=== PATIENT | female | born 1975 | race Caucasian/White ===

== ENCOUNTER → 2019-09-15 11:50 | Outpatient (CLI) | payer OTHER, SELFPAY ==
--- NOTE | 2019-09-15 | DI.MG.S_ITS ---
BILATERAL DIGITAL SCREENING MAMMOGRAM 3D/2D WITH CAD: 09/15/2019 CLINICAL: Routine screening. Comparison is made to exam dated: 09/22/2017 [facility]. The tissue of both breasts is heterogeneously dense. This may lower the sensitivity of mammography. Current study was also evaluated with a Computer Aided Detection (CAD) system. No significant masses, calcifications, or other findings are seen in either breast. There has been no significant interval change. IMPRESSION: NEGATIVE There is no mammographic evidence of malignancy. A 1 year screening mammogram is recommended. This exam was interpreted at Station ID: [id number]. NOTE: For mammograms, a report in lay terms will be sent to the patient. Approximately 15% of breast malignancies will not be visualized mammographically. In the management of a palpable breast mass, a negative mammogram must not discourage biopsy of a clinically suspicious lesion. Electronically Signed By: Robby palomino/adeline:09/15/2019 15:50:49 letter sent: Normal Exam ACR BI-RADS Category 1: Negative 3341F
== END ==
PROVIDERS: Family Provider Family Medicine; PCP Family Medicine; Visit Provider Family Medicine
DX: Z12.31 Encounter for screening mammogram for malignant neoplasm of breast (principal)
CPT/HCPCS: 77063; 77067

== ENCOUNTER → 2020-09-29 09:10 | Outpatient (CLI) | payer OTHER, MEDICAID, SELFPAY ==
--- NOTE | 2020-09-29 | DI.MG.S_ITS ---
BILATERAL DIGITAL SCREENING MAMMOGRAM 3D/2D WITH CAD: 09/29/2020 CLINICAL: Routine screening. Comparison is made to exams dated: 09/15/2019 mammogram and 09/22/2017 mammogram - [facility]. The tissue of both breasts is heterogeneously dense. This may lower the sensitivity of mammography. Current study was also evaluated with a Computer Aided Detection (CAD) system. There is an oval equal density focal asymmetry with an obscured and circumscribed margin in the right breast at 12 o'clock posterior depth. There is an oval equal density mass with an obscured and circumscribed margin and grouped fine punctate calcifications in the left breast central to the nipple middle depth. No other significant masses or calcifications are seen in either breast. IMPRESSION: INCOMPLETE: NEEDS ADDITIONAL IMAGING EVALUATION The oval equal density focal asymmetry in the right breast at 12 o'clock posterior depth is indeterminate. Mediolateral and spot compression views as well as additional views with possible ultrasound are recommended. The oval equal density mass in the left breast central to the nipple middle depth is indeterminate. Mediolateral and spot magnification views as well as additional views with possible ultrasound are recommended. This exam was interpreted at Station ID: [id number]. NOTE: For mammograms, a report in lay terms will be sent to the patient. Approximately 15% of breast malignancies will not be visualized mammographically. In the management of a palpable breast mass, a negative mammogram must not discourage biopsy of a clinically suspicious lesion. Electronically Signed By: Robby palomino/adeline:10/01/2020 09:13:03 letter sent: Additional Imaging Needed ACR BI-RADS Category 0: Incomplete 3340F
== END ==
PROVIDERS: Family Provider Family Medicine; PCP Family Medicine; Referring Provider Family Medicine; Visit Provider Family Medicine
DX: Z12.31 Encounter for screening mammogram for malignant neoplasm of breast (principal)
CPT/HCPCS: 77063; 77067

== ENCOUNTER → 2021-02-27 08:32 | Outpatient (CLI) | payer OTHER, MEDICAID, SELFPAY ==
--- NOTE | 2021-02-27 | DI.US.S_ITS ---
ULTRASOUND OF LEFT BREAST: 02/27/2021 CLINICAL: Patient returns today to evaluate a focal asymmetry in the left breast. Comparison is made to exams dated: 02/27/2021 mammogram, 09/29/2020 mammogram, 09/15/2019 mammogram, and 09/22/2017 mammogram - [facility]. Doppler ultrasound of the left breast was performed. Bueno scale images of the real-time examination were reviewed. There is a 1 cm x 1 cm x 0.9 cm irregular mass with an angular margin in the left breast at 5 o'clock posterior depth. This irregular mass is hypoechoic with posterior acoustic shadowing. There are related calcifications. IMPRESSION: SUSPICIOUS OF MALIGNANCY The 1 cm x 1 cm x 0.9 cm irregular mass in the left breast is at a high suspicion for malignancy. An ultrasound guided biopsy is recommended. These findings and recommendation were discussed with the patient by Dr Reid. This exam was interpreted at Station ID: [id number]. Electronically Signed By: Gee Guerra acr/:02/27/2021 12:54:58 letter sent: Biopsy Required Ultrasound BI-RADS: 4c High suspicion of malignancy
--- NOTE | 2021-02-27 | DI.MG.S_ITS ---
BILATERAL DIGITAL DIAGNOSTIC MAMMOGRAM 3D/2D WITH ADDITIONAL VIEWS: 02/27/2021 CLINICAL: Additional evaluation requested from prior study. Comparison is made to exams dated: 09/29/2020 mammogram, 09/15/2019 mammogram, and 09/22/2017 mammogram - [facility]. The tissue of both breasts is heterogeneously dense. This may lower the sensitivity of mammography. There is a mass in the right breast seen on the craniocaudal view only. There also is an oval equal density focal asymmetry with an obscured and circumscribed margin in the right breast at 12 o'clock middle depth. This is not seen in additional views. There is an oval equal density mass with an obscured and circumscribed margin and grouped fine punctate calcifications in the left breast central to the nipple middle depth. This is seen in additional views. No other significant masses or calcifications are seen in either breast. IMPRESSION: INCOMPLETE: NEEDS ADDITIONAL IMAGING EVALUATION The mass in the right breast seen on the craniocaudal view only needs additional evaluation. The oval equal density focal asymmetry in the right breast at 12 o'clock middle depth is indeterminate. An ultrasound is recommended. The oval equal density mass in the left breast central to the nipple middle depth is indeterminate. An ultrasound is recommended. US will be performed and dictated separately. This exam was interpreted at Station ID: [id number]. NOTE: For mammograms, a report in lay terms will be sent to the patient. Approximately 15% of breast malignancies will not be visualized mammographically. In the management of a palpable breast mass, a negative mammogram must not discourage biopsy of a clinically suspicious lesion. Electronically Signed By: Gee Guerra acr/:02/27/2021 09:21:27 letter sent: Need Ultrasound ACR BI-RADS Category 0: Incomplete 3340F
--- NOTE | 2021-02-27 | DI.US.S_ITS ---
PROCEDURE: US BREAST RT LIMITED COMPARISON: None. INDICATIONS: BILATERAL ADDITIONAL VIEWS FINDINGS: IMPRESSION: Dictated by: Gee Guerra M.D. on 02/27/2021 at 12:48 Approved by: Gee Guerra M.D. on 02/27/2021 at 12:51
--- NOTE | 2021-02-27 10:40 | DI.US.S_ITS ---
At the request of: COLLEEN MAHAN Procedure: US breast RT limited ULTRASOUND OF RIGHT BREAST: 02/27/2021 CLINICAL: Patient returns today to evaluate a focal asymmetry in the right breast. Comparison is made to exams dated: 02/27/2021 mammogram, 09/29/2020 mammogram, 09/15/2019 mammogram, and 09/22/2017 mammogram - [facility]. Color flow and continuous wave Doppler ultrasound of the right breast were performed. There is a benign 0.7 cm x 0.4 cm x 0.6 cm oval cyst in the right breast at 12 o'clock posterior depth 4 cm from the nipple. There also is a benign 0.4 cm x 0.3 cm x 0.4 cm round cyst in the right breast at 12 o'clock posterior depth 4 cm from the nipple. IMPRESSION: BENIGN There is no sonographic evidence of malignancy. The 0.7 cm x 0.4 cm x 0.6 cm oval cyst in the right breast at 12 o'clock posterior depth is consistent with a simple cyst and is benign. The 0.4 cm x 0.3 cm x 0.4 cm round cyst in the right breast at 12 o'clock posterior depth is consistent with a simple cyst and is benign. This exam was interpreted at Station ID: [id number]. Electronically Signed By: Gee Guerra acr/:02/27/2021 12:51:34 letter sent: Normal Exam Ultrasound BI-RADS: 2 Benign
== END ==
PROVIDERS: Family Provider Family Medicine; PCP Family Medicine; Referring Provider Family Medicine; Visit Provider Family Medicine
DX: R92.8 Other abnormal and inconclusive findings on diagnostic imaging of breast (principal); N63.23 Unspecified lump in the left breast, lower outer quadrant; N60.01 Solitary cyst of right breast
CPT/HCPCS: 76642; 77066; G0279

== ENCOUNTER → 2021-03-14 12:52 | Outpatient (CLI) | payer OTHER, MEDICAID, SELFPAY ==
--- NOTE | 2021-03-14 | PATH_ITS ---
[facility] Accession Number: [id number] . 01 Material submitted: . breast - LEFT BREAST 4:30 4 CMFN . 01 Diagnosis: A. Left Breast, 4:30 o'clock, 4 cm from the Nipple, Biopsy: Invasive (ductal) carcinoma, grade 2 of 3 (Campo combined histologic grade, total score 7/9), with the following features: 1. Nuclear pleomorphism: Intermediate. (2/3) 2. Mitotic rate: Intermediate. (2/3) 3. Tubular differentiation: Little or none. (3/3) 4. Size of invasive carcinoma: Present on multiple cores, single largest dimension of at least 7 mm on this sample. 5. Ductal carcinoma in situ: Absent. 6. Calcifications: Absent. 7. Lymphatic invasion: Absent in this specimen. 8. Prognostic markers: - Estrogen receptor: Positive (99%, Intermediate). - Progesterone receptor: Positive (5%, Intermediate). - HER2 status: Equivocal for protein overexpression (2+) by immunohistochemistry; FISH studies for gene amplification are pending and the results will be reported in an adddendum. [facility] 03/18/2021 1316 Local . 01 Electronically signed: . Carlyn Alva MD, Pathologist NPI- [id number] . 01 Gross description: . Received in formalin, labeled L breast mass 4:30, are seven pieces of meneses adipose tissue ranging in size from 1.6 x 0.3 x 0.3 cm to 0.6 x 0.3 x 0.3 cm. Clotted hemorrhagic material is also observed measuring 2.5 x 2.1 x 0.4 cm in aggregate. All seven pieces of tissue are entirely submitted in cassette A1. The aggregate amounts of hemorrhagic material are entirely submitted in cassette A2. Collection date and time are listed as 03/14/21 at 13:53 p.m., for a total fixation time after processing of approximately 26 hours. ([id number]) /FRR 03/15/2021 0325 Local . 01 Microscopic: . Predictive marker immunohistochemical studies are performed on block A1 with the invasive carcinoma showing the following results: . Estrogen receptor (SP1): Positive (99% tumor cells staining, intermediate intensity). Progesterone receptor (1E2): Positive (5% tumor cells staining, intermediate intensity). Her2 (4B5): Equivocal for protein overexpression by immunohistochemistry (2+); FISH studies for gene amplification are pending and the results will be reported in an adddendum. . Internal controls for ER and [place] are positive. Cold ischemic time is <5 minutes. The scoring criteria for breast biomarkers by immunohistochemistry is based on the ASCO/CAP guidelines (Jeannette AC et al, J Clin Oncol: 2017Jun 08;36(20):9951-2820 and Shon ME et al, Arch Pathol Lab Med: 2009;134(6):907-22). Deparaffinized sections of formalin fixed tissue (along with appropriate positive controls) are incubated with the above antibody(s). Using the automated [place] stainer, tissue is incubated with the designated antibody which is then localized by a non-biotin, dual polymer detection system. The external controls are reviewed for appropriate reactivity and found to be adequate. Results on the target cell population are indicated above. These tests have not been validated on decalcified tissue. This test was developed and its performance characteristics determined by [employer]. It has not been cleared or approved by the U.S. Food and Drug Administration. The FDA has determined that such clearance or approval is not necessary. This test is used for clinical purposes. It should not be regarded as investigational or for research. . 01 Pathologist provided ICD-10: C50.912 . 01 CPT . 629943, 680425, 329287, 658068 Performed at: 01 [facility] [address] [place] [address] [address] [facility], [place], [place] [id number] MD Robby Marshall MD Phone: [phone]
--- NOTE | 2021-03-14 12:58 | DI.MG.S_ITS ---
UNILATERAL LEFT DIGITAL DIAGNOSTIC MAMMOGRAM POST-EXCISIONAL BIOPSY: 03/14/2021 CLINICAL: Left breast mass. Comparison is made to exams dated: 02/27/2021 mammogram, 09/29/2020 mammogram, and 09/15/2019 mammogram - [facility]. The tissue of left breast is heterogeneously dense. This may lower the sensitivity of mammography. There is a mass in the left breast at 4 o'clock middle depth, biopsied earlier same day. The Vision marker was placed in the mass and has not fully expanded as a result. IMPRESSION: POST PROCEDURE MAMMOGRAM FOR MARKER PLACEMENT The mass in the left breast was biopsied same day under US guidance. The Vision marker is within the mass and thus did not fully expand. This exam was interpreted at Station ID: [id number]. NOTE: For mammograms, a report in lay terms will be sent to the patient. Approximately 15% of breast malignancies will not be visualized mammographically. In the management of a palpable breast mass, a negative mammogram must not discourage biopsy of a clinically suspicious lesion. Electronically Signed By: Carroll Reid M.D. [facility]/:03/15/2021 09:08:44 ACR BI-RADS Category Post-procedure mammogram for marker placement
--- NOTE | 2021-03-14 12:58 | DI.US.S_ITS ---
ULTRASOUND GUIDED BIOPSY LEFT BREAST USING VACUUM DEVICE WITH MARKING DEVICE INSERTED AND POST MAMMOGRAPHIC AND ULTRASOUND IMAGIN03/14/2021 CLINICAL: Left breast mass. PATIENT CONSENT: Risks (minor bleeding, infection, vasovagal reaction and repeat procedure), benefits and alternatives were explained to the patient and written informed consent was obtained. Correlation is made to exams dated: 03/14/2021 mammogram, 02/27/2021 ultrasound, 02/27/2021 mammogram, 09/29/2020 mammogram, 09/15/2019 mammogram, and 09/22/2017 mammogram - [facility]. An ultrasound guided biopsy using real-time ultrasound was performed for the concerning 1 cm x 1.1 cm x 1 cm circumscribed round solid mass located in the left breast at 4 o'clock middle depth. This was described on the previous mammography and ultrasound reports. The skin was prepped in the usual manner. Local anesthetic was administered to the access site. A skin fabiana was made in the breast. The abnormality was approached from the lateral aspect. A 13 gauge biopsy needle was placed adjacent to the abnormality under ultrasound guidance. Once the needle was documented to be in the correct location, four specimens were obtained using the Mammotome biopsy system. The patient received additional local anesthetic during the procedure. A Vision marker clip was inserted into the biopsy cavity. A skin closure strip and a sterile dressing were applied to the access site. Post procedure mammographic and ultrasound imaging demonstrates the location device at the targeted area and partial removal of the abnormality. The specimens were sent to the laboratory for pathological analysis. IMPRESSION: ULTRASOUND GUIDED BIOPSY MALIGNANT Ultrasound guided biopsy of the 1 cm x 1.1 cm x 1 cm solid mass in the left breast at 4 o'clock middle depth was successful. Pathology indicates malignant invasive ductal carcinoma. Pathology results are concordant with imaging findings. A surgical/oncologic consultation is recommended. This exam was interpreted at Station ID: [id number]. Carroll brower,harry/:03/19/2021 09:31:30
== END ==
PROVIDERS: Family Provider Family Medicine; PCP Family Medicine; Referring Provider Family Medicine; Visit Provider Family Medicine
DX: C50.512 Malignant neoplasm of lower-outer quadrant of left female breast (principal); Z17.0 Estrogen receptor positive status [ER+]
CPT/HCPCS: 19083; 77065

== ENCOUNTER → 2021-04-15 10:42 | Outpatient (CLI) | payer OTHER, MEDICAID, SELFPAY ==
--- NOTE | 2021-04-15 10:43 | DI.MRI.S_ITS ---
BREAST MRI OF BOTH BREASTS- WITH CAD: 04/15/2021 CLINICAL: Left breast cancer. Comparison is made to exams dated: 03/14/2021 mammogram, 03/14/2021 ultrasound biopsy, 02/27/2021 ultrasound, and 02/27/2021 mammogram - [facility]. Interpretation of this MRI was correlated with available mammograms and ultrasounds. Informed consent was obtained from the patient. 20 cc of ProHance (Gadoteridol) nonionic contrast was injected. Axial T1, T2, sagittal T1, and pre and post contrast T1 images were obtained with a dedicated breast coil. Post processing was performed including computer aided calculations of any tumor volumes and dimensions. There is moderate a background parenchymal enhancement. Right breast: No suspicious mass or definite abnormal enhancement to suggest malignancy within the right breast. Left breast: Centered at the 4 o'clock o'clock position of the lateral left breast middle 3rd depth, there is an oval mass measuring up to 1.3 x 1.1 x 1.1 cm. This demonstrates an internal linear focus of magnetic susceptibility corresponding to the biopsy clip. Kinetic enhancement curves demonstrate internal regions of rapid initial enhancement with washout in the mass. The findings correspond to patient's biopsy-proven invasive ductal carcinoma. Elsewhere, within the inferior left breast at approximately the 5 to 6 o'clock position, middle to posterior 3rd in depth, there is a small oval enhancing mass measuring approximately 0.8 x 0.7 x 0.6 cm. Kinetic enhancement curves demonstrate predominantly moderate initial enhancement with plateau. Elsewhere, no other definite suspicious mass or abnormal enhancement identified within the left breast. Miscellaneous: No axillary or internal mammary lymphadenopathy by size criteria. IMPRESSION: KNOWN BIOPSY PROVEN MALIGNANCY 1. Left breast mass centered at the 4 o'clock position demonstrated corresponding to patient's biopsy-proven invasive ductal carcinoma. 2. Additional small enhancing mass at the 5-6 o'clock position of the left breast is nonspecific. Recommend further evaluation with a second-look ultrasound and ultrasound-guided biopsy if indicated. 3. No evidence of malignancy in the right breast. This exam was interpreted at Station ID: [id number]. Electronically Signed By: Robby Ga M.D. ddp/:04/15/2021 13:53:23 ACR BI-RADS Category 6: Known biopsy proven malignancy 3346F
== END ==
PROVIDERS: PCP Family Medicine; Referring Provider Family Medicine; Visit Provider Surgery
DX: C50.512 Malignant neoplasm of lower-outer quadrant of left female breast (principal); N63.23 Unspecified lump in the left breast, lower outer quadrant
CPT/HCPCS: 77049

== ENCOUNTER → 2021-04-18 12:49 | Outpatient (CLI) | payer OTHER, MEDICAID, SELFPAY ==
--- NOTE | 2021-04-18 12:50 | DI.US.S_ITS ---
LIMITED ULTRASOUND OF LEFT BREAST: 04/18/2021 CLINICAL: Patient returns today to evaluate a focal asymmetry in the left breast seen on MRI. Comparison is made to exams dated: 04/15/2021 breast MRI, 03/14/2021 ultrasound biopsy, 03/14/2021 mammogram, 02/27/2021 ultrasound, 02/27/2021 ultrasound, and 09/29/2020 mammogram - [facility]. Color flow and real-time ultrasound of the left breast lower outer quadrant were performed. Bueno scale images of the real-time examination were reviewed. There is a mass in the left breast at 4:30 o'clock middle depth 4 cm from the nipple. This correlates with the previous biopsy and the clip is seen. However, no additional mass is seen in the region of the MRI finding at approximately 5-6:00 middle/posterior depth. IMPRESSION: KNOWN BIOPSY PROVEN MALIGNANCY No ultrasound correlate for the MRI finding in the left breast at 5:00-6:00. Suspect that this could be fibroglandular tissue which is also seen on mammogram. Biopsy proven malignancy at 4:30 4 cm from the nipple is again seen. Recommend continued surgical/oncologic consultation. This exam was interpreted at Station ID: [id number]. Electronically Signed By: Kingsley Ness M.D. slc/:04/18/2021 14:55:21 Ultrasound BI-RADS: 6 Known biopsy proven malignancy
== END ==
PROVIDERS: PCP Family Medicine; Referring Provider Surgery; Visit Provider Surgery
DX: R92.8 Other abnormal and inconclusive findings on diagnostic imaging of breast (principal); C50.512 Malignant neoplasm of lower-outer quadrant of left female breast; N64.89 Other specified disorders of breast
CPT/HCPCS: 76642

== ENCOUNTER 2021-05-15 07:34 | Day surgery (SDC) | payer OTHER, MEDICAID, SELFPAY ==
[2021-05-10 12:59] VITALS: BMI 32.3
[2021-05-15] VITALS (7 sets, daily range): BP systolic 148–163; BP diastolic 60–104; PULSE 65–95; RESP 14–16; TEMP 36.3–36.8; O2SAT 97–100; BMI 32.3
--- NOTE | 2021-05-15 | DI.MG.S_ITS ---
SPECIMEN: 05/15/2021 CLINICAL: Left breast cancer. Correlation is made to exams dated: 05/15/2021 localization, 05/15/2021 mammogram, and 02/27/2021 mammogram - [facility]. The specimen contains the loc wire, the biopsy localization Visin marker, and the mass. IMPRESSION: SPECIMEN All desired items are contained in the specimen as noted above. This exam was interpreted at Station ID: [id number]. Carroll Reid M.D. sdh/:05/15/2021 17:27:47
--- NOTE | 2021-05-15 | PATH_ITS ---
[facility] Accession Number: [id number] . 01 Material submitted: . PART A: breast - LEFT BREAST MASS PART B: lymph node - LEFT SENTINEL NODE . 01 Clinical history: . SHORT SUTURE IS ANTERIOR; LONG SUTURE IS SUPERIOR; WIRE IS LATERAL . 02 Diagnosis: A. Left Breast Mass, Excision: Invasive carcinoma of the breast. Please see CAP Cancer Summary data, below. . B. Left [place] Node, Excision: Five lymph nodes negative for metastatic carcinoma by immunohistochemistry studies (0/5). Please see CAP Cancer Summary data, below. . SURGICAL PATHOLOGY CANCER CASE SUMMARY: Invasive carcinoma of the breast. . Procedure: Excision; Lumpectomy and sentinel node biopsy. Specimen laterality: Left. Tumor site: 4:30 o'clock, middle depth, 4 cm from nipple per written ultrasound report. Tumor size: Greatest dimension of largest invasive focus greater than 1 mm: 12 mm (slices 4-6). Histologic type: Invasive carcinoma of no special type (ductal by immunohistochemistry studies). Histologic grade: Glandular (acinar) / tubular differentiation: 3 of 3. Nuclear pleomorphism: 2 of 3. Mitotic rate: 1 of 3. Overall grade: Grade 2. Tumor focality: Single focus of invasive carcinoma. . Ductal carcinoma in situ: Present; favor negative for extensive intraductal component. Although DCIS is present outside the invasive tumor, and extends through 4 slices, it appears to be less than 25% of the invasive tumor area. Size of DCIS: Approximately 16 mm (slices 3-6). Architectural patterns: [place] and solid patterns. Nuclear grade: Grade 3 (high grade). Necrosis: Present, central. Lobular carcinoma in-situ: Not identified. . Tumor excision: Skin: Skin is not present. Skeletal muscle: No skeletal muscle is present. . Margins: Invasive carcinoma margins: Uninvolved by invasive carcinoma. Distance from closest margin: 8 mm from lateral margin. Anterior: Greater than 10 mm. Posterior: Greater than 10 mm. Superior: Greater than 10 mm. Inferior: Greater than 10 mm. Medial: 9 mm. . DCIS margins: Uninvolved by DCIS. Distance from closest margin: 7 mm from the medial margin. Anterior: 8 mm. Posterior: Greater than 10 mm. Superior: Greater than 10 mm. Inferior: Greater than 10 mm. Lateral: Greater than 10 mm. . Regional Lymph nodes: Total number of lymph nodes examined: 5. Number of sentinel lymph nodes examined: 5. Number of lymph nodes with metastasis: 0 Extranodal extension: Not applicable. . Treatment effect in the breast: No known presurgical therapy. Treatment effect in the lymph nodes: Not identified. Lymphovascular invasion: Not identified. Dermal lymphovascular invasion: No skin present. . Pathologic stage classification (pTNM, AJCC 8th Edition): pT1c pN0(sn) . Additional pathologic findings: biopsy marker in slice 5 and biopsy site changes. . Breast biomarker testing; Please microscopic description; HER2 FISH studies pending. . Microcalcifications: Present in non-neoplastic tissue, invasive tumor, and in DCIS. MRV 05/22/2021 1418 Local . 02 Electronically signed: . Arabella Jimenez MD, Pathologist NPI- [id number] . 01 Gross description: . A. Specimen A is received in formalin labeled left breast mass and consists of a single lumpectomy specimen. . Weight: 23 grams. Measurement: 5.5 cm from anterior to posterior x 5.0 cm from superior to inferior x 3.2 cm from medial to lateral. Skin Ellipse: Absent. Wire: Present entering the lateral aspect. Margins: The specimen is oriented with a short suture designated anterior, a long suture designated superior, and a wire designated lateral and is inked as follows: superior blue, inferior green, anterior red, posterior black, medial yellow, and lateral orange. Slice: From anterior to posterior into eleven slices. Lesion: There is a 1.0 x 1.0 x 1.0 cm firm meneses-white lesion within slices 4-6. Biopsy Site: There is a silver metallic balloon-shaped biopsy marker within slice 5 in the center of the mass. Distance to Margins: 0.8 cm from the lateral margin, 1.0 cm from the medial margin, 2.0 cm from the superior and inferior margins, 1.2 cm from the anterior margin, and greater than 2 cm from the posterior margin. Other: The remaining cut surfaces are composed of approximately 75% meneses-yellow lobulated adipose tissue and 25% meneses-white fibrocytic tissue. Automotive [employer] Clerk sections are submitted. . A1 - Anterior margin, perpendicularly sectioned. A2 - Slice 2. A3 - Automotive Parts Clerk slice 3, anterior to mass. A4-A6 - Slice 4, mass, trisected. A7-A9 - Slice 5, mass, trisected. A10 - Slice 6, mass in relation to medial and lateral margins. A11 - Slice 7, posterior to mass. A12 - Slice 8, telephone service representative fibrocytic tissue. A13 - Slice 10. A14-A16 - Slice 11, posterior margin, perpendicularly sectioned. . Formalin fixation time: Approximately 36 hours. . B. Specimen B is received in formalin labeled left sentinel node and consists of a 4.0 x 3.5 x 2.0 cm meneses-yellow fragment of adipose tissue with a suture designated sentinel node. Sectioning reveals a 2.2 x 1.0 x 0.8 cm meneses-pink lymph node within the area of the suture. Also, identified are three additional candidate lymph nodes ranging from 0.2 to 1.0 cm. The specimen is entirely submitted. . B1 - Bisected sentinel node. B2 - Additional lymph nodes. B3 - Remaining adipose tissue. ([id number]) /[facility] 05/22/2021 1348 Local . 02 Microscopic: . Immunostains are performed to better evaluate the cells of interest. The control stains show appropriate reactivity. . RESULTS: Block A: E-cadherin: Strongly positive, consistent with ductal differentiation. . Blocks B2, B2 and B3: MICHELLE: Negative. . The absence of MICHELLE immunostaining mitigates against the presence of metastatic carcinoma. . . CAP BREAST BIOMARKER REPORTING TEMPLATE: . Estrogen Receptor (ER) Status: Positive, approximately 80% of tumor nuclei. Average intensity of staining: Intermediate. Primary antibody: SP1 Progesterone Receptor (PgR) Status: Positive, approximately 5% of tumor nuclei. Average intensity of staining: Intermediate. Primary antibody: 1E2 HER2 (by immunohistochemistry): Equivocal at 2+. Primary antibody: 4B5 HER2 (ERBB2) (by in situ hybridization): Pending; results will be reported as an addendum. . Cold Ischemia and Fixation Times: Meets requirements in the latest version of the ASCO/CAP guidelines. Testing performed on Block Number: A10 . TECHNICAL NOTE: The scoring criteria for breast biomarkers by immunohistochemistry is based on the current ASCO/CAP guidelines (Shon et al, Arch Pathol Lab Med 2010: 134(6): 907-922 / Jeannette Calvo, Arch Pathol Lab Med 2014: 138(2):241-256). Deparaffinized sections of formalin fixed tissue (along with appropriate positive controls) are incubated with the above antibody(s). Using the automated [employer] stainer, tissue is incubated with the designated antibody* which is then localized by a non-biotin, dual polymer detection system. The external controls are reviewed for appropriate reactivity and found to be adequate. Results on the target cell population are indicated above. These tests have not been validated on decalcified tissue. . * This test was developed and its performance characteristics determined by [facility]. It has not been cleared or approved by the U.S. Food and Drug Administration. The FDA has determined that such clearance or approval is not necessary. This test is used for clinical purposes. It should not be regarded as investigational or for research. . 02 Pathologist provided ICD-10: C50.912 . 02 CPT . 808389, 169570, 869624, 265388, 780919, I06140, [id number] Performed at: 01 [facility] [address] [place] [address] [id number] MD Robby Marshall MD Phone: [phone] Performed at: 02 [facility] [address] [place] [address] [id number] MD Jazmyn Acosta MD Phone: [phone]
--- NOTE | 2021-05-15 | DI.MG.S_ITS ---
UNILATERAL LEFT DIGITAL DIAGNOSTIC MAMMOGRAM 3D/2D: 05/15/2021 CLINICAL: Post wire loc. Comparison is made to exams dated: 03/14/2021 mammogram, 02/27/2021 mammogram, and 09/29/2020 mammogram - [facility]. The tissue of left breast is heterogeneously dense. This may lower the sensitivity of mammography. The wire localization targets the biopsy localization site accurately. IMPRESSION: POST PROCEDURE MAMMOGRAM FOR MARKER PLACEMENT The patient was transported for surgical excision of the area of concern, marked by the localization wire. This exam was interpreted at Station ID: [id number]. NOTE: For mammograms, a report in lay terms will be sent to the patient. Approximately 15% of breast malignancies will not be visualized mammographically. In the management of a palpable breast mass, a negative mammogram must not discourage biopsy of a clinically suspicious lesion. Electronically Signed By: Carroll Reid M.D. sdh/:05/15/2021 17:26:12 ACR BI-RADS Category Post-procedure mammogram for marker placement
--- NOTE | 2021-05-15 07:38 | DI.NM.S_ITS ---
PROCEDURE: NM SENTINEL NODE W IMAGING RADIOPHARMACEUTICAL: 0.5-1.0 mCi Millipore filtered Tc-99m sulfur colloid. INDICATIONS: Injection for sentinel node biopsy to be performed in OR COMPARISON: None. TECHNIQUE: The area around the nipple was prepped and draped in a sterile fashion. Tc-99m sulfur colloid was injected intra-dermally in the outer edge of the areola in the left breast. Images were obtained subsequently. A body contour outline was obtained. FINDINGS: There is a single lymph node(s) in the ipsilateral axilla, which is marked on the skin and the images for referring physician. IMPRESSION: Administration of radiotracer into the left breast periareolar region for intra-operative sentinel lymph node localization. Single identified left axillary node visible. Dictated by: Carroll Reid M.D. on 05/15/2021 at 11:34 Approved by: Carroll Reid M.D. on 05/15/2021 at 11:36
--- NOTE | 2021-05-15 07:38 | DI.US.S_ITS ---
ULTRASOUND GUIDED WIRE LOCALIZATION LEFT BREAST WITH POST DIGITAL MAMMOGRAPHIC AND ULTRASOUND IMAGING AND RADIOGRAPHIC SPECIMEN IMAGIN05/15/2021 CLINICAL: Pre op wire localization with ultrasound. Correlation is made to exams dated: 05/15/2021 mammogram, 04/18/2021 ultrasound, 04/15/2021 breast MRI, 03/14/2021 ultrasound biopsy, 03/14/2021 mammogram, and 02/27/2021 [facility]. A wire localization using ultrasound guidance was performed for the concerning circumscribed oval mass located in the left breast at 4 o'clock middle depth. This was described on the previous mammography and ultrasound reports. The skin was prepped in the usual manner. Local anesthetic was administered to the access site. The localization was approached from the lateral aspect. A J-hook wire was inserted into the targeted area under ultrasound guidance. A sterile dressing was applied to the access site. Post placement digital mammographic and ultrasound imaging demonstrates the tip rests in the targeted area. IMPRESSION: WIRE LOCALIZATION Wire localization for the mass in the left breast at 4 o'clock middle depth was successful. The imaged specimen includes the lesion, a biopsy clip, and the distal portion of the localization wire. A surgical excision was performed. This exam was interpreted at Station ID: [id number]. Carroll Reid M.D. [facility]/:05/15/2021 17:22:54
--- NOTE | 2021-05-15 07:47 | SUR.PREOP ---
Patient with SARS-CoV-2 (COVID-!() Qualitative PCR done on aldo via Retrieval Code [id number] Results NOT Detected 05/13
[2021-05-15] MEDS: LACTATED RINGERS 1,000 ML 100 ML IV ×2 (10:49→14:46)
--- NOTE | 2021-05-15 12:17 | PM.PREOP ---
Pre-operative Note COVID-19 COVID-19 status: Negative Result date/Date tested (Pos, Neg/Pending): 05/14/21 Interval Note History & Physical reviewed/Exam performed by Physician: Yes Changes to H&P: No
[2021-05-15] MEDS: CEFAZOLIN 1 GM VIAL 2 GM IV (13:04)
--- NOTE | 2021-05-15 13:19 | SUR.OPER ---
Supine on padded OR bed, head on pillow, arms secured on padded arm boards at <90 degrees abduction, legs uncrossed, safety belt at thigh, tape over blanket over lower legs.
[2021-05-15] MEDS: BUPIVACAINE 0.5% (PF) VIAL 30 ML INJ (13:25)
--- NOTE | 2021-05-15 14:59 | PM.OP.1 ---
Operative Date/Time/Diagnoses Date of procedure: 05/15/21 Time of procedure: 14:59 Pre-op diagnosis: Left breast cancer Post-op diagnosis: same Procedure & Clinicians Procedure: Needle localization with lumpectomy and sentinel node biopsy Same procedure as scheduled: Yes Indications: Biopsy-proven breast cancer in a patient who had an extensive workup. Only 1 lesion was ultimately found and biopsied which proves positive for invasive cancer. She was brought in for lumpectomy and sentinel node biopsy Surgeon: Chino Dodge Click Yes if Unassisted: Yes Anesthesia Type: General Operative Notes Findings: Single hot, normal appearing node. Specimen mammogram revealed the clip in the center of the biopsy tissue and the needle in place. Closure Type: primary Specimen(s): other ([place] node. Breast tissue with wire) Prosthetic devices, grafts, tissues, transplants, or devices: None Estimated Blood Loss (mL): 25 Blood products transfused: none Procedure in detail: The patient is placed supine on the operating room table and underwent general LMA anesthesia. The wire was shortened and she was prepped and draped in the usual fashion. The mass was located just lateral and just inferior to midline based on my macro free and on palpation with deflection of the needle. Local anesthetic was infiltrated and a curvilinear incision made at the edge of the nipple-areolar complex in the left outer lower quadrant. It was carried down into the subcutaneous tissue and breast tissue. Using the needle as a guide the tissue around it was excised down to muscle fascia. This was done principally with cautery. Bleeding was controlled with cautery as well. The specimen was marked while in the patient and then the specimen was detached and removed and sent for specimen mammography. The clip was in the specimen. Meticulous hemostasis was achieved. The patient is small breasted and the amount of tissue removed left a fairly significant defect. It was pretty clear to me that mobilizing surrounding tissue to close this space would result in a rather significant breast deformity. Therefore I chose to leave the cavity open and close the tissues anterior. Clips are placed at the margins of the lumpectomy. The soft tissues were closed in 2 layers with 3-0 Vicryl. The skin was closed running 4-0 Vicryl subcuticular stitch. Attention was turned to the axilla. Using completely different instruments and changing gloves I injected local and made an incision in the lower part of the axilla. Was carried into the axilla proper. Using the Navigator probe I identified a single node that was positive for significant radio activity. I surrounding structures from it and cauterized any vessels going to it. It was removed and counts taken. High single 2nd counts were 371 and the 12nd count was approximately 3700. There was no other tissue in the axilla that raised to count above 10. Meticulous hemostasis was achieved. The axilla was closed with a 3-0 Vicryl. The subcu was closed with 3-0 Vicryl. The skin was closed a running 4-0 Vicryl subcuticular stitch. Steri-Strips were then applied to both wounds. Dressings were applied. The patient was awakened extubated and taken the recovery room good condition. There were no complications. Complications: none Post-operative Condition: stable Disposition: PACU
[2021-05-15] MEDS: OXYCODONE/ACETAMINOPHEN 5/325 TABLET 1 TAB PO (15:40)
--- NOTE | 2021-05-28 12:00 | ONC.SCHED ---
[employer] DX order requisition with supporting documents, including insurance authorization, faxed to [employer] @ [phone].
== END 2021-05-15 16:06 | disposition home or self-care (01) ==
PROVIDERS: PCP Family Medicine; Referring Provider Specialist; Visit Provider Specialist
PROC: (CPT 19301; principal; 2021-05-15 11:45)
DX: C50.512 Malignant neoplasm of lower-outer quadrant of left female breast (principal); Z17.0 Estrogen receptor positive status [ER+]; I10 Essential (primary) hypertension
CPT/HCPCS: 38500; 19125; 38900; 19285; 76098; 77065; 78195; 81025; A9541; C1819; J0690; J1100; J2405; J2704; J3010

== ENCOUNTER 2021-07-16 12:22 | Day surgery (SDC) | payer OTHER, MEDICAID, SELFPAY ==
[2021-07-09 15:17] VITALS: BMI 32.0
[2021-07-16] MEDS: LACTATED RINGERS 1,000 ML 42 ML IV (12:34)
[2021-07-16 12:35] VITALS: BP 177/109; PULSE 88; RESP 20; TEMP 36.6; O2SAT 100; BMI 32.0
--- NOTE | 2021-07-16 14:52 | P.HP_ITS ---
History of Present Illness History of Present Illness Date Patient Seen: 07/16/21 Time Patient Seen: 14:52 Chief complaint: [facility] Narrative: 45F recent diagnosis of left breast cancer status post lumpectomy and sentinel node biopsy. Stage PT1cN, oncology recommending chemotherapy for Oncotype DX score 24 and young age. No distory of prior inwelling venous catheter. Patient History Medical History Easy bruisability HTN (hypertension) Psoriasis Toenail fungus Surgical History History of lumpectomy of left breast (05/15/21) Hx of breast biopsy (03/14/21) Hx of dilation and curettage [place] teeth removed Family & Social History Family History Mother Gallstones Hypertension Skin cancer Father Heart disease Hypertension Grandfather Skin cancer Other Colon cancer Ovarian cancer Social History: household members significant other,children Tobacco & Substance use: Smoking Status Never smoker alcohol intake current alcohol intake frequency a few times a month Substance Use Type does not use Meds Home Medications and Allergies Home Medications Medication Instructions Recorded Confirmed Type Lactobacillus rhamnosus GG 5 5 cell PO DAILY 04/03/21 07/16/21 History billion cell oral powder packet ([employer]) amlodipine 5 mg tablet 5 mg PO DAILY 04/03/21 07/16/21 History cholecalciferol (vitamin D3) 50 50 mcg PO DAILY 04/03/21 07/16/21 History mcg (2,000 unit) capsule terbinafine HCl 250 mg tablet 250 mg PO DAILY 04/03/21 07/16/21 History magnesium 200 mg tablet 200 mg PO 2XW 07/04/21 07/16/21 History dexamethasone 4 mg tablet 8 mg PO BID #12 tab 07/11/21 07/16/21 Rx ondansetron HCl 4 mg tablet 4 mg PO Q6H PRN #60 tab 07/11/21 07/16/21 Rx Allergies Allergy/AdvReac Type Severity Reaction Status Date / Time No Known Drug Allergies Allergy Verified 07/16/21 12:28 Review of Systems Review of Systems ROS: Yes All systems reviewed with the patient and are negative except as otherwise documented Exam Vital Signs (past 8 hours): - 07/16/21 12:35 Temperature 98 F Pulse Rate 88 Respiratory Rate 20 Blood Pressure 177/109 H Pulse Oximetry 100 Oxygen Delivery Method Room Air Narrative Exam Narrative: GENERAL-well developed adult female, no acute distress HEENT-no scleral icterus, hearing intact NECK-no JVD, trachea midline CVS- regular rate, no peripheral edema RESP-unlabored respiratory effort, no audible wheezing GI-soft, nontender nondistended MSK-no cyanosis or clubbing, extremities without deformity SKIN-warm, dry NEURO-alert and oriented, no focal deficits PYSCH-Appropriate mood and affect Assessment & Plan Assessment and plan (1) Breast cancer of lower-outer quadrant of left female breast: Qualifiers: Estrogen receptor status: positive Qualified Code(s): C50.512 - Malignant neoplasm of lower-outer quadrant of left female breast; Z17.0 - Estrogen receptor positive status [ER+] Status: Acute Assessment & Plan narrative: 45F left breast cancer sp lumpectomy pT1CN0 oncology recommending chemotherapy. Here for port a cath placement. Operative procedure discussed including risks of bleeding, infection, embolism, pneumothorax damage to surrounding structures. Questions answered she's in agreement with this plan.
[2021-07-16 15:30] LABS: COVID19 -Nasal RAPID Negative (Negative)
[2021-07-16] MEDS: CEFAZOLIN 1 GM VIAL 2 GM IV (15:48)
--- NOTE | 2021-07-16 15:56 | SUR.OPER ---
Supine on padded OR bed, head on pillow, arms padded and tucked at sides, legs uncrossed, safety belt at thigh, tape over blanket over lower legs .
[2021-07-16] MEDS: HEPARIN 5,000 UNIT, SODIUM CHLORIDE 0.9% 50 ML IV ×2 (16:10→16:27)
[2021-07-16] MEDS: BUPIVACAINE 0.25% (PF) VIAL 30 ML INJ (16:11)
--- NOTE | 2021-07-16 16:14 | DI.RAD.S_ITS ---
PROCEDURE: XR CHEST 1V INDICATIONS: PORT A CATH PLACEMENT TECHNIQUE: One view of the chest was acquired. COMPARISON: None. FINDINGS: Surgical changes and devices: Port-A-Cath from right-sided approach in normal position within the superior vena cava superiorly.. Lungs and pleura: Lungs are clear. No pleural effusions or pneumothorax. Mediastinum: Mediastinal contours appear normal. Heart size is normal. Bones and chest wall: No suspicious bony lesions. Overlying soft tissues appear unremarkable. IMPRESSION: Port-A-Cath placed from right-sided approach into the upper 3rd of the superior vena cava. No pneumothorax seen. Dictated by: Carroll Reid M.D. on 07/16/2021 at 17:34 Approved by: Carroll Reid M.D. on 07/16/2021 at 17:35
[2021-07-16 16:53] VITALS: BP 154/89; PULSE 102; RESP 14; TEMP 36.9; O2SAT 98
--- NOTE | 2021-07-16 16:54 | PM.OP.1 ---
Operative Date/Time/Diagnoses Date of procedure: 07/16/21 Time of procedure: 16:54 Pre-op diagnosis: Breast cancer Post-op diagnosis: same Procedure & Clinicians Procedure: Port-A-Cath insertion Same procedure as scheduled: Yes Indications: Breast cancer chemotherapy Surgeon: Tc Walls Anesthesia Type: General Operative Notes Findings: Tip of catheter projects into the SVC. Specimen(s): none sent Estimated Blood Loss (mL): 20 Procedure in detail: Patient was brought to the operating room placed supine on table. Bilateral lower extremity compressive devices were applied. General anesthesia was induced and he was intubated with an LMA. He was then prepped and draped in usual sterile fashion. Time-out was performed ensure the correct patient procedure necessary equipment within the operating room. He received 2 g of Ancef prior to incision. Under ultrasound guidance the right internal jugular vein was accessed under direct visualization. The guidewire was then threaded through the needle. Its placement was then confirmed using fluoroscopy. The dilator was then placed over the guidewire. The catheter was then inserted through the sheath. Placement was again confirmed with fluoroscopy. A subcutaneous pocket was made in the right chest wall. The tunneler device was used to move the catheter from the neck to the chest pocket. The port was attached after it was primed with heparined saline. The port did not flush or withdraw. Despite manipulation of the catheter it would not flush. The right subclavian was then accessed through the pocket. Guide wire advanced placement confirmed with fluro. Dilated over the guidewire port attached and it flushed and torsten normally. The port was then secured to the underlying fascia using interupted 0 Prolene suture. Hemostasis was achieved. The wound was irrigated with sterile saline. The subcutaneous tissues were reapproximated with the 3 0 Vicryl and then skin closed with 4-0 Monocryl. The skin was sealed with Dermabond. Patient tolerated procedure well. The sponge and instrument count at the end operation was correct. Patient emerged from general anesthesia was extubated and taken to the postoperative care unit in stable condition Complications: none Post-operative Condition: stable Disposition: same day surgery
[2021-07-16 16:58] VITALS: BP 165/100; BP 172/90; PULSE 101; PULSE 103; RESP 12; RESP 16; O2SAT 97; O2SAT 99
[2021-07-16 17:10] VITALS: BP 159/90; PULSE 95; RESP 16; O2SAT 98
[2021-07-16] MEDS: ACETAMINOPHEN 325 MG TABLET 975 MG PO (17:19)
[2021-07-16 17:30] VITALS: BP 150/100; PULSE 89; RESP 16; TEMP 36.7; O2SAT 98
== END 2021-07-16 17:41 | disposition home or self-care (01) ==
PROVIDERS: PCP Family Medicine; Referring Provider Surgery; Visit Provider Surgery
PROC: (CPT 36561; principal; 2021-07-16 13:15)
DX: C50.512 Malignant neoplasm of lower-outer quadrant of left female breast (principal); Z17.0 Estrogen receptor positive status [ER+]; I10 Essential (primary) hypertension; Z20.822 Contact with and (suspected) exposure to COVID-19
CPT/HCPCS: 36561; 71045; 76000; 87635; C1788; J0690; J1100; J1644; J2405; J2704; J3010

== ENCOUNTER → 2021-10-08 09:03 | Outpatient (CLI) | payer OTHER, MEDICAID, SELFPAY ==
--- NOTE | 2021-10-08 | DI.ECHO.S_ITS ---
[facility]---------+ [facility] +---------+ : : [address] : [address] : : : : [id number] : : : : Phone: [phone]---------+ Echocardiogram Report + + :Name: MODESTO BECKER Study Date: 10/08/2021 Height: 62 in : :[facility] ReadingLocation: Weight: 180 lb : : Gender: Female BSA: 1.8 m2 : :: 1975 Age: 45 yrs BP: 156/117 mmHg: :Reason For Study: CARDIAC MURMUR : :Ordering Physician: KALLI, : :COLLEEN Performed By: Corine Benton : :Referring: COLLEEN MAHAN : + + Interpretation Summary Normal sinus rhythm. Normal LV size, wall thickness, wall motion and LV systolic function. EF is 60-65%. Mild LA enlargement; otherwise normal chamber sizes. No valvular abnormalities. No prior study available for comparison. Procedure: A two-dimensional transthoracic echocardiogram with color flow and Doppler was performed. The study quality was technically adequate. There is no prior echocardiogram noted for this patient. The patient was in sinus rhythm with heart rates between 74-80 bpm during the exam. Left Ventricle: The left ventricle is normal in size. Proximal septal thickening is noted. The ejection fraction is estimated to be 60-65%. Right Ventricle: The right ventricle is normal in size and function. Atria: The left atrium is mildly dilated. Right atrial size is normal. There is no Doppler evidence for an interatrial shunt. Mitral Valve: The mitral valve leaflets appear borderline thickened, but open well. There is trace mitral regurgitation. Aortic Valve: The aortic valve is trileaflet. The aortic valve opens well. There is no aortic valve stenosis. No aortic regurgitation is present. Tricuspid Valve: The tricuspid valve is normal in structure and function. There is mild to moderate tricuspid regurgitation. The right ventricular systolic pressure is estimated to be at least 34 mmHg based on an estimated right atrial pressure of 8 mm Hg. Pulmonic Valve: The pulmonic valve leaflets are thin and pliable; valve motion is normal. There is trace pulmonic regurgitation. Great Vessels: The aortic root is normal size. The dimensions of the ascending aorta are normal. The IVC is dilated (diameter is greater than 2.1 cm) yet it collapses greater than 50% with a sniff. This suggests a right atrial pressure of 8 mm Hg. Pericardium/ Pleura There is no pericardial effusion. There is no pleural effusion. MMode/2D Measurements & Calculations LVIDd: 4.8 cm LVOT diam: 2.0 cm LVIDs: 3.2 cm Ao root diam: 3.0 cm FS: 34.4 % asc Aorta Diam: 3.4 cm IVSd: 1.00 cm Ao Arch Diam (Prox Trans): 2.9 cm LVPWd: 0.79 cm LV barber. diameter/BSA (cm/m^2): 2.6 LV sys. diameter/BSA (cm/m^2): 1.7 LA A2 area: 23.3 cm2 RA long axis: 5.3 cm LA A4 area: 22.7 cm2 RA area: 18.0 cm2 LA length (vol): 5.8 cm RA vol: 52.4 ml LA vol: 77.4 ml RA : 28.7 ml/m2 LA vol index: 42.3 ml/m2 IVC diam: 2.1 cm TAPSE: 1.8 cm Doppler Measurements & Calculations Ao V2 max: 168.2 cm/sec LVOT Max Ivan: 135.0 cm/sec Ao V2 mean: 121.8 cm/sec LV V1 max P.4 mmHg Ao max P.3 mmHg LV V1 VTI: 29.3 cm Ao mean P.5 mmHg HIEN(I,D): 2.4 cm2 Ao V2 VTI: 39.4 cm HIEN(V,D): 2.6 cm2 sev ratio: 0.74 HIEN indexed to BSA (cm^2/m^2): 1.3 MV E max ivan: 85.8 cm/sec TR max ivan: 255.2 cm/sec MV A max ivan: 77.7 cm/sec TR max P.0 mmHg MV E/A: 1.1 PA V2 max: 92.2 cm/sec Med Peak E' Ivan: 6.7 cm/sec PA V2 mean: 69.0 cm/sec E/E' med: 12.8 PA mean P.0 mmHg Lat Peak E' Ivan: 10.5 cm/sec PA pr(Accel): 29.3 mmHg E/E' lat: 8.2 E/e' average: 10.5 MV dec time: 0.21 sec SV(LVOT): 95.1 ml Electronically signed by: Roseann Armenta M.D. on Reading Physician:10/08/2021 11:36 PM
== END ==
PROVIDERS: PCP Family Medicine; Referring Provider Family Medicine; Visit Provider Family Medicine
DX: I07.1 Rheumatic tricuspid insufficiency (principal); R01.1 Cardiac murmur, unspecified
CPT/HCPCS: 93306

== ENCOUNTER → 2021-10-31 07:59 | Outpatient (CLI) | payer OTHER, MEDICAID, SELFPAY ==
[2021-10-31 10:34] LABS: Cancer Antigen 125 6.1 U/mL (0-35)
== END ==
PROVIDERS: PCP Family Medicine; Referring Provider Obstetrics & Gynecology Gynecologic Oncology; Visit Provider Obstetrics & Gynecology Gynecologic Oncology
DX: C50.919 Malignant neoplasm of unspecified site of unspecified female breast (principal); Z15.01 Genetic susceptibility to malignant neoplasm of breast; Z15.02 Genetic susceptibility to malignant neoplasm of ovary; Z15.09 Genetic susceptibility to other malignant neoplasm
CPT/HCPCS: 36415; 86304

== ENCOUNTER → 2021-11-13 09:05 | Outpatient (CLI) | payer OTHER, MEDICAID, SELFPAY ==
--- NOTE | 2021-11-13 | DI.US.S_ITS ---
PROCEDURE: US PELVIC COMPLETE INDICATIONS: BRCA2 GENE POSITIVE TECHNIQUE: Real-time scanning was performed of the pelvic organs, with image documentation. Additional endovaginal scanning was necessary due to incomplete visualization of the adnexal and endometrial structures by transabdominal scanning. COMPARISON: [facility], [place], PELVIC COMPLETE, 06/23/2011, 17:00. FINDINGS: Uterus: Uterus is retroverted and normal in size at 6.3 x 5.2 x 3.8 cm. The myometrium is homogeneous. The endometrium measures 8.9 mm combined thickness. Myometrial cyst seen anteriorly adjacent to the endometrial complex measuring 3 mm. Ovaries: Ovaries are normal bilaterally measuring 3.3 x 2.1 x 1.2 cm on the right and 3.6 x 2.0 x 1.3 cm on the left. Other: No pathologic free abdominal or pelvic fluid. IMPRESSION: 3 mm anterior myometrial cyst adjacent to the endometrial complex; otherwise normal pelvic ultrasound. We strive to produce accurate, complete, and clear reports of imaging services. To assist us in improving patient care, this report was composed using standard report templates and voice recognition software. Therefore, it may contain abnormal punctuation, insertions and/or omissions. Occasional wrong-word or sound-alike substitutions may occur. Though we review the report and make efforts to correct it, we do recommend that the report be read carefully in proper context to recognize any text inaccuracies. Dictated by: Bala LOGAN Interpreted: Jeff West MD on 11/13/2021 at 9:57 Transcribed by: JAILYN on 11/13/2021 at 10:04 Approved by: Jeff West M.D. on 11/13/2021 at 10:22
== END ==
PROVIDERS: PCP Family Medicine; Referring Provider Obstetrics & Gynecology Gynecologic Oncology; Visit Provider Obstetrics & Gynecology Gynecologic Oncology
DX: C50.919 Malignant neoplasm of unspecified site of unspecified female breast (principal); N85.8 Other specified noninflammatory disorders of uterus; Z15.01 Genetic susceptibility to malignant neoplasm of breast; Z15.02 Genetic susceptibility to malignant neoplasm of ovary; Z15.09 Genetic susceptibility to other malignant neoplasm
CPT/HCPCS: 76830; 76856

== ENCOUNTER → 2021-12-25 09:10 | Outpatient (CLI) | payer OTHER, MEDICAID, SELFPAY | PROVIDERS: PCP Family Medicine; Referring Provider Internal Medicine Hematology & Oncology; Visit Provider Internal Medicine Hematology & Oncology | DX: C50.512 Malignant neoplasm of lower-outer quadrant of left female breast (principal); M85.851 Other specified disorders of bone density and structure, right thigh; Z79.811 Long term (current) use of aromatase inhibitors; Z90.722 Acquired absence of ovaries, bilateral | CPT/HCPCS: 77080 ==

== ENCOUNTER → 2022-04-19 07:38 | Outpatient (CLI) | payer OTHER, SELFPAY ==
--- NOTE | 2022-04-19 07:44 | DI.RAD.S_ITS ---
PROCEDURE: XR CHEST 2V INDICATIONS: PRE SURG EVAL TECHNIQUE: 2 views of the chest were acquired. COMPARISON: [facility], , XR CHEST 1V, 07/16/2021, 16:53. FINDINGS: Surgical changes and devices: Right-sided Port-A-Cath and left breast surgical clips remain unchanged from the prior Lungs and pleura: Lungs are clear. No pleural effusions or pneumothorax. Mediastinum: Mediastinal contours are normal. Heart size is normal. Bones and chest wall: No suspicious bony abnormalities. Soft tissues appear unremarkable. IMPRESSION: No acute cardiopulmonary findings Approved by: Brent Guzman M.D. on 04/19/2022 at 11:34
[2022-04-19 08:59] LABS: Prothrombin Time 11.5 SECONDS (10.1-12.7)
[2022-04-19 09:02] LABS: PTT Partial Thromboplastin Tim 33 SECONDS (26.4-36.2)
[2022-04-19 09:04] LABS: HEMOLYSIS < 15 (0-50)
[2022-04-19 09:10] LABS: Alanine Aminotransferase 26 IU/L (<35); Albumin 4.4 g/dL (3.5-5.0); Albumin Globulin Ratio 1.6 (1.0-2.8); Alkaline Phosphatase 81 U/L (38-126); Aspartate Aminotransferase 24 IU/L (14-36); BUN Creatinine Ratio 19.7 (6-22); Bilirubin Total 0.4 mg/dL (0.2-1.3); Blood Urea Nitrogen 14 mg/dL (7-17); Calcium 9.2 mg/dL (8.4-10.2); Carbon Dioxide 28 mmol/L (22-32); Chloride 107 mmol/L (98-107); Estimated Glomerular Filt Rate > 60 mL/min (>60); Globulin 2.7 g/dL (1.7-4.1); Glucose 111 mg/dL (70-100); Hematocrit 35.7 % (36-46); Hemoglobin 12.3 g/dL (12.0-16.0); Mean Corpuscular HGB Conc 34.6 % (30-36); Mean Corpuscular Volume 92.5 fL (80-100); Platelet Count 267 X10^3/uL (150-400); Potassium 4.4 mmol/L (3.4-5.1); Red Blood Cell Count 3.86 X10^6/uL (4.0-5.2); Red Cell Distribution Width 19.4 % (11.6-14.8); Sodium 142 mmol/L (137-145); Total Protein 7.1 g/dL (6.3-8.2)
[2022-04-19 09:17] LABS: Cholesterol 176 mg/dL (140-199); HDL Cholesterol 69 mg/dL (40-60); LDL Cholesterol Calculated 95 mg/dL (<100); Triglycerides 62 mg/dL (35-150)
[2022-04-19 09:45] LABS: Prealbumin 25.2 mg/dL (17.6-36.0)
== END ==
PROVIDERS: PCP Family Medicine; Referring Provider Family Medicine; Visit Provider Family Medicine
DX: Z00.00 Encounter for general adult medical examination without abnormal findings (principal); Z85.3 Personal history of malignant neoplasm of breast; Z15.01 Genetic susceptibility to malignant neoplasm of breast; Z40.01 Encounter for prophylactic removal of breast
CPT/HCPCS: 36415; 71046; 80053; 80061; 84134; 84443; 85027; 85610; 85730; 93005; 93010

== ENCOUNTER → 2022-09-20 08:25 | Outpatient (CLI) | payer OTHER, SELFPAY ==
[2022-09-20 09:25] LABS: Add Manual Diff / Slide Review NO; Basophils Absolute Auto 100 /uL (0-100); Basophils Percent Auto 1.8 % (0-2); Eosinophils Absolute Auto 100 /uL (0-450); Hematocrit 36.1 % (36-46); Hemoglobin 12.3 g/dL (12.0-16.0); Lymphocytes Absolute Auto 1100 /uL (1100-4500); Lymphocytes Percent Auto 22.5 % (25-40); Mean Corpuscular Hemoglobin 30.8 PG (26-34); Mean Corpuscular Volume 90.6 fL (80-100); Monocytes Absolute Auto 300 /uL (0-900); Monocytes Percent Auto 5.8 % (3-14); Neutrophils Absolute Auto 3300 /uL (1500-7000); Neutrophils Percent Auto 67.9 % (50-75); Platelet Count 337 X10^3/uL (150-400); Red Blood Cell Count 3.98 X10^6/uL (4.0-5.2); Red Cell Distribution Width 19.9 % (11.6-14.8); White Blood Cell Count 4.8 X10^3/uL (4.5-11.0)
[2022-09-20 09:38] LABS: Alanine Aminotransferase 28 IU/L (<35); Albumin 4.2 g/dL (3.5-5.0); Albumin Globulin Ratio 1.4 (1.0-2.8); Alkaline Phosphatase 103 U/L (38-126); Aspartate Aminotransferase 21 IU/L (14-36); BUN Creatinine Ratio 16.9 (6-22); Bilirubin Total 0.5 mg/dL (0.2-1.3); Blood Urea Nitrogen 12 mg/dL (7-17); Calcium 9.4 mg/dL (8.4-10.2); Carbon Dioxide 29 mmol/L (22-32); Chloride 103 mmol/L (98-107); Estimated Glomerular Filt Rate > 60 mL/min (>60); Glucose 101 mg/dL (70-100); HEMOLYSIS < 15 (0-50); Potassium 3.8 mmol/L (3.4-5.1); Sodium 140 mmol/L (137-145); Total Protein 7.2 g/dL (6.3-8.2)
== END ==
PROVIDERS: PCP Family Medicine; Referring Provider Surgery Plastic and Reconstructive Surgery; Visit Provider Surgery Plastic and Reconstructive Surgery
DX: N65.0 Deformity of reconstructed breast (principal); N65.1 Disproportion of reconstructed breast; M95.9 Acquired deformity of musculoskeletal system, unspecified; Z85.3 Personal history of malignant neoplasm of breast
CPT/HCPCS: 36415; 80053; 85025

== ENCOUNTER → 2022-12-28 14:32 | Outpatient (CLI) | payer OTHER, SELFPAY ==
--- NOTE | 2022-12-28 14:33 | DI.RAD.S_ITS ---
PROCEDURE: XR ELBOW LT MIN 3V INDICATIONS: proximal radius tender, reduced ROM, fall yesterday TECHNIQUE: 3 views of the elbow were acquired. COMPARISON: None. FINDINGS: Bones: There is a moderately displaced, intra-articular radial head fracture seen. Soft tissues: There is a moderate joint effusion. IMPRESSION: Moderately displaced radial head fracture, with intra-articular involvement. Dictated by: Minh Skelton M.D. on 12/28/2022 at 13:53 Approved by: Minh Skelton M.D. on 12/28/2022 at 13:53
--- NOTE | 2022-12-28 14:33 | DI.RAD.S_ITS ---
PROCEDURE: XR FOREARM LT 2V INDICATIONS: proximal radius tender, reduced ROM/cannot supinate TECHNIQUE: 2 views of the forearm were acquired. COMPARISON: [facility], CR, XR ELBOW LT MIN 3V, 12/28/2022, 14:33. FINDINGS: Bones: A moderately displaced, intra-articular radial head fracture can be seen. No additional fractures are detected. Soft tissues: Associated soft tissue swelling is seen. IMPRESSION: Moderately displaced radial head fracture, with intra-articular involvement. Dictated by: Minh Skelton M.D. on 12/28/2022 at 13:54 Approved by: Minh Skelton M.D. on 12/28/2022 at 13:54
== END ==
PROVIDERS: PCP Family Medicine; Referring Provider Student in an Organized Health Care Education/Training Program; Visit Provider Student in an Organized Health Care Education/Training Program
DX: S52.122A Displaced fracture of head of left radius, initial encounter for closed fracture (principal); M25.522 Pain in left elbow
CPT/HCPCS: 73080; 73090

== ENCOUNTER 2023-03-07 10:44 | Emergency (ER) | payer OTHER, SELFPAY ==
[2023-03-07 10:52] VITALS: BP 157/99; PULSE 118; RESP 18; TEMP 37; O2SAT 100; BMI 32.0
--- NOTE | 2023-03-07 11:08 | DI.RAD.S_ITS ---
PROCEDURE: XR CHEST 1V INDICATIONS: chest pain TECHNIQUE: One view of the chest was acquired. COMPARISON: [facility], CR, XR CHEST 2V, 04/19/2022, 7:59. FINDINGS: Surgical changes and devices: Interval removal of right chest wall port a catheter. Postsurgical changes of the bilateral chest wall. Lungs and pleura: Lungs are clear. No pleural effusions or pneumothorax. Mediastinum: Mediastinal contours appear normal. Heart size is normal. Bones and chest wall: No suspicious bony lesions. Overlying soft tissues appear unremarkable. IMPRESSION: No evidence of an acute cardiopulmonary abnormality. Dictated by: Luis Fernando Ruvalcaba D.O. on 03/07/2023 at 10:44 Approved by: Luis Fernando Ruvalcaba D.O. on 03/07/2023 at 10:45
[2023-03-07 11:27] LABS: Add Manual Diff / Slide Review NO; Basophils Absolute Auto 0 /uL (0-100); Basophils Percent Auto 0.4 % (0-2); Eosinophils Absolute Auto 100 /uL (0-450); Eosinophils Percent Auto 2.3 % (2-4); Hematocrit 40.9 % (36-46); Lymphocytes Absolute Auto 1500 /uL (1100-4500); Mean Corpuscular HGB Conc 34.1 % (30-36); Mean Corpuscular Hemoglobin 31.1 PG (26-34); Mean Corpuscular Volume 91.2 fL (80-100); Monocytes Absolute Auto 400 /uL (0-900); Neutrophils Absolute Auto 4300 /uL (1500-7000); Neutrophils Percent Auto 68.3 % (50-75); Platelet Count 311 X10^3/uL (150-400); Red Blood Cell Count 4.49 X10^6/uL (4.0-5.2); Red Cell Distribution Width 14.5 % (11.6-14.8); White Blood Cell Count 6.4 X10^3/uL (4.5-11.0)
[2023-03-07 11:33] VITALS: BP 154/88; PULSE 100; RESP 16; O2SAT 99
[2023-03-07 11:40] LABS: PTT Partial Thromboplastin Tim 31 SECONDS (26-36)
[2023-03-07 11:42] LABS: Alanine Aminotransferase 42 IU/L (<35); Albumin 4.7 g/dL (3.5-5.0); Albumin Globulin Ratio 1.3 (1.0-2.8); Alkaline Phosphatase 105 U/L (38-126); Aspartate Aminotransferase 28 IU/L (14-36); BUN Creatinine Ratio 30.2 (6-22); Bilirubin Total 0.2 mg/dL (0.2-1.3); Blood Urea Nitrogen 16 mg/dL (7-17); Calcium 9.6 mg/dL (8.4-10.2); Carbon Dioxide 28 mmol/L (22-32); Chloride 106 mmol/L (98-107); Creatine Kinase 40 U/L (30-135); Estimated Glomerular Filt Rate > 60 mL/min (>60); Globulin 3.6 g/dL (1.7-4.1); Glucose 124 mg/dL (70-100); HEMOLYSIS < 15 (0-50); Lipase 58 U/L (23-300); Magnesium 1.9 mg/dL (1.6-2.3); Potassium 3.3 mmol/L (3.4-5.1); Sodium 142 mmol/L (137-145); Total Protein 8.3 g/dL (6.3-8.2)
--- NOTE | 2023-03-07 11:44 | ED.CHESTPAIN ---
HPI - Chest Pain General Chief Complaint: Chest Pain Stated Complaint: chest pain/knee pain Time Seen by Provider: 03/07/23 11:28 Source: patient Mode of arrival: Ambulatory Limitations: no limitations History of Present Illness HPI narrative: This is a 47-year-old female with history of hypertension, breast cancer, BRCA positive on letrozole and amlodipine who had chemotherapy in 2020, lumpectomy, port, bilateral mastectomy with reconstruction in 2021 and then revision, hysterectomy and then a left elbow fracture with repair most recently in December of 2022. Patient states she is had 4th episode of chest pain 1st episode was July 31 followed by October 01, episode in October or November and then an episode yesterday she states it lasts for 1-2 minutes it is very intense sensation substernal without radiation and then resolved. Nothing seems to exacerbate or alleviate it. She states the 1st 2 times she was in bed when she was having a massage and once while standing. Patient states she is felt a little short of breath she had nausea with 1 episode, no vomiting. She denies any swelling in her extremities. She does note she is had some ache in her left knee on the side she has not noticed any redness or skin changes but maybe a little swelling but not significant or a large change. Patient denies any issues with bowel movements or urination. Daily medications include letrozole and amlodipine. No known drug allergies. No tobacco, alcohol or illicit. Family history dad had a CABG around his 50s, PERC positive in her family. no clotting disorders known. Dr. Arellano's her primary care. Dr. Jaeger as her oncologist. Related Data Home Medications Medication Instructions Recorded Confirmed Lactobacillus rhamnosus GG 5 5 cell PO DAILY 04/03/21 02/05/23 billion cell oral powder packet ([employer]) amlodipine 5 mg tablet 5 mg PO DAILY 04/03/21 02/05/23 cholecalciferol (vitamin D3) 50 50 mcg PO DAILY 04/03/21 02/05/23 mcg (2,000 unit) capsule magnesium 200 mg tablet 200 mg PO 2XW 07/04/21 02/05/23 calcium carb-Ca gluc 500 mg 1 tab PO DAILY 04/24/22 02/05/23 calcium-magnesium ox-Mg gluc 250 mg tablet (Calcium Magnesium) Previous Rx's Medication Instructions Recorded letrozole 2.5 mg tablet (Femara) 2.5 mg PO DAILY HR positive breast 01/15/23 cancer #90 tabs Allergies Allergy/AdvReac Type Severity Reaction Status Date / Time No Known Drug Allergies Allergy Verified 12/28/22 14:02 Review of Systems Review of Systems ROS Unobtainable: All systems reviewed & are unremarkable except as noted in HPI and below Patient History Medical History Easy bruisability HTN (hypertension) Psoriasis Toenail fungus Surgical History History of lumpectomy of left breast (05/15/21) Hx of breast biopsy (03/14/21) Hx of dilation and curettage [place] teeth removed Family History Mother Gallstones Hypertension Skin cancer Father Heart disease Hypertension Grandfather Skin cancer Other Colon cancer Ovarian cancer Social History marital status: unmarried,living together household members: significant other and children occupational status: employed Smoking Status: Never smoker alcohol intake: current substance use type: does not use Smoking Status: Never smoker alcohol intake frequency: a few times a month Substance Use Type: does not use Exam Narrative Exam Narrative: GENERAL: Alert and oriented x three, well-appearing female in mild distress. HEENT: Head normocephalic, atraumatic, EOMI, pupils reactive, face symmetric, moist mucous membranes NECK: Supple, full range of motion CARDIOVASCULAR: Regular rate and rhythm without murmurs, rubs or gallops. No JVD. No swelling bilateral lower extremities. RESPIRATORY: Breath sounds equal bilaterally, no wheezes rales or rhonchi. No tachypnea or accessory muscle use. Patient's speaks in full sentences. ABDOMEN: Soft, nontender. Normoactive bowel sounds all 4 quadrants. No guarding or rebound, rigidity, no mass : No CVA tenderness EXTREMITIES: Normal range of motion, no clubbing or edema. Neurovascularly intact. Patient has full range of motion of her left knee. Nontender to touch. NEUROLOGICAL: Cranial nerves II through XII grossly intact. Moving all extremities SKIN: Warm, dry, no petechiae, no rashes or lesions. Initial Vital Signs Initial Vital Signs: Vital Signs Temperature 98.6 F 03/07/23 10:52 Pulse Rate 118 H 03/07/23 10:52 Respiratory Rate 18 03/07/23 10:52 Blood Pressure 157/99 H 03/07/23 10:52 Pulse Oximetry 100 03/07/23 10:52 Oxygen Delivery Method Room Air 03/07/23 10:52 Course Orders Ordered: ED Orders 03/07/23 11:08 XR chest 1V Stat 03/07/23 11:20 Complete Blood Count AUTO DIFF Stat Comprehensive Metabolic Panel Stat Lipase Stat Magnesium Stat NT-proBNP (BNP-Adult 18+) Stat PTT Partial Thromboplastin Johny Stat Prothrombin Time INR Stat Troponin & CK Cardiac Panel Stat 03/07/23 11:30 COVID19 -Nasal RAPID Stat 03/07/23 11:55 CT angio chest PE protocol Stat US periph venous low extrem lt Stat Discontinued Medications Aspirin (Aspirin 81 Mg Chew Tab) 324 mg PO NOW ONE Stop: 03/07/23 11:09 Last Admin: 03/07/23 11:10 Dose: Not Given Documented By: KANE Vital Signs Vital signs: Vital Signs - 8 hr 03/07/23 10:52 03/07/23 11:33 03/07/23 12:12 Temperature 98.6 F Pulse Rate 118 H 100 H 102 H Respiratory Rate 18 16 18 Blood Pressure 157/99 H 154/88 H 177/92 H Pulse Oximetry 100 99 97 Oxygen Delivery Method Room Air Room Air Room Air 03/07/23 14:21 03/07/23 15:15 Temperature Pulse Rate 90 86 Respiratory Rate 18 16 Blood Pressure 146/88 H 151/84 H Pulse Oximetry 99 99 Oxygen Delivery Method Room Air Room Air MDM - Chest Pain Lab Data 03/07/23 11:20 03/07/23 11:20 Labs: Lab Results 03/07/23 03/07/23 03/07/23 Range/Units 11:20 11:20 11:20 WBC 6.4 (4.5-11.0) X10^3/uL RBC 4.49 (4.0-5.2) X10^6/uL Hgb 14.0 (12.0-16.0) g/dL Hct 40.9 (36-46) % MCV 91.2 (80-100) fL MCH 31.1 (26-34) PG MCHC 34.1 (30-36) % RDW 14.5 (11.6-14.8) % Plt Count 311 (150-400) X10^3/uL Neut % (Auto) 68.3 (50-75) % Lymph % (Auto) 23.0 L (25-40) % [place] % (Auto) 6.0 (3-14) % Eos % (Auto) 2.3 (2-4) % Baso % (Auto) 0.4 (0-2) % Neut # (Auto) 4300 (2565-8775) /uL Lymph # (Auto) 1500 (6135-6604) /uL [place] # (Auto) 400 (0-900) /uL Eos # (Auto) 100 (0-450) /uL Baso # (Auto) 0 (0-100) /uL PT 12.0 (10.1-12.7) SECONDS INR 1.0 (0.9-1.3) APTT 31 (26-36) SECONDS Sodium 142 (137-145) mmol/L Potassium 3.3 L (3.4-5.1) mmol/L Chloride 106 (98-107) mmol/L Carbon Dioxide 28 (22-32) mmol/L BUN 16 (7-17) mg/dL Creatinine 0.53 (0.52-1.04) mg/dL Estimated GFR > 60 (>60) mL/min BUN/Creatinine Ratio 30.2 H (6-22) Glucose 124 H (70-100) mg/dL Calcium 9.6 (8.4-10.2) mg/dL Magnesium 1.9 (1.6-2.3) mg/dL Total Bilirubin 0.2 (0.2-1.3) mg/dL AST 28 (14-36) IU/L ALT 42 H (<35) IU/L Alkaline Phosphatase 105 (38-126) U/L Total Creatine Kinase 40 (30-135) U/L CK-MB (CK-2) TNP CK-MB (CK-2) Rel Index TNP Troponin I < 0.012 (0.01-0.034) ng/mL NT-Pro-B Natriuret Pep 32 (<125) pg/mL Total Protein 8.3 H (6.3-8.2) g/dL Albumin 4.7 (3.5-5.0) g/dL Globulin 3.6 (1.7-4.1) g/dL Albumin/Globulin Ratio 1.3 (1.0-2.8) Lipase 58 (23-300) U/L SARS-CoV-2 (PCR) (Negative) 03/07/23 Range/Units 11:30 WBC (4.5-11.0) X10^3/uL RBC (4.0-5.2) X10^6/uL Hgb (12.0-16.0) g/dL Hct (36-46) % MCV (80-100) fL MCH (26-34) PG MCHC (30-36) % RDW (11.6-14.8) % Plt Count (150-400) X10^3/uL Neut % (Auto) (50-75) % Lymph % (Auto) (25-40) % [place] % (Auto) (3-14) % Eos % (Auto) (2-4) % Baso % (Auto) (0-2) % Neut # (Auto) (2866-7487) /uL Lymph # (Auto) (5449-3221) /uL [place] # (Auto) (0-900) /uL Eos # (Auto) (0-450) /uL Baso # (Auto) (0-100) /uL PT (10.1-12.7) SECONDS INR (0.9-1.3) APTT (26-36) SECONDS Sodium (137-145) mmol/L Potassium (3.4-5.1) mmol/L Chloride (98-107) mmol/L Carbon Dioxide (22-32) mmol/L BUN (7-17) mg/dL Creatinine (0.52-1.04) mg/dL Estimated GFR (>60) mL/min BUN/Creatinine Ratio (6-22) Glucose (70-100) mg/dL Calcium (8.4-10.2) mg/dL Magnesium (1.6-2.3) mg/dL Total Bilirubin (0.2-1.3) mg/dL AST (14-36) IU/L ALT (<35) IU/L Alkaline Phosphatase (38-126) U/L Total Creatine Kinase (30-135) U/L CK-MB (CK-2) CK-MB (CK-2) Rel Index Troponin I (0.01-0.034) ng/mL NT-Pro-B Natriuret Pep (<125) pg/mL Total Protein (6.3-8.2) g/dL Albumin (3.5-5.0) g/dL Globulin (1.7-4.1) g/dL Albumin/Globulin Ratio (1.0-2.8) Lipase (23-300) U/L SARS-CoV-2 (PCR) Negative (Negative) Imaging Data Chest x-ray: Radiologist's Impression: [place] [address] XRay Report Signed Patient: Jazmyn Rose MR#: [id number] : 1975 Acct:[id number] Age/Sex: 47 / F Date of Service: 03/07/23 Loc: ED Accession Number: [id number] ?? Procedure: XR chest 1V Ordering Provider: Halima Fisher D.O. PROCEDURE:? XR CHEST 1V ? INDICATIONS:? chest pain ? TECHNIQUE:? One view of the chest was acquired.? ? COMPARISON:? [facility], CR, XR CHEST 2V, 04/19/2022, 7:59. ? FINDINGS:? ? Surgical changes and devices:? Interval removal of right chest wall port a catheter.? Postsurgical changes of the bilateral chest wall. ? Lungs and pleura:? Lungs are clear.? No pleural effusions or pneumothorax.? ? Mediastinum:? Mediastinal contours appear normal.? Heart size is normal.? ? Bones and chest wall:? No suspicious bony lesions.? Overlying soft tissues appear unremarkable.? ? IMPRESSION:? ? No evidence of an acute cardiopulmonary abnormality. ? ? Dictated by: Luis Fernando Ruvalcaba D.O. on 03/07/2023 at 10:44 ? ? Approved by: Luis Fernando Ruvalcaba D.O. on 03/07/2023 at 10:45?? CT scan - chest: Radiologist's Impression: [address] [address] [address] Scan Report Signed Patient: Jazmyn Rose MR#: [id number] : 1975 Acct:[id number] Age/Sex: 47 / F Date of Service: 03/07/23 Loc: ED Accession Number: [id number] ?? Procedure: CT angio chest PE protocol Ordering Provider: Halima Fisher D.O. PROCEDURE:? CT ANGIO CHEST PE PROTOCOL ? INDICATIONS:? left leg pain, swelling, chest pain, hx breast ca ? TECHNIQUE:? After the administration of intravenous contrast, 2 mm thick sections acquired from the pulmonary apices to the posterior costophrenic angles.? 3-dimensional maximum intensity projection (MIP) coronal and sagittal reformats were then acquired through the thorax.? For radiation dose reduction, the following was used:? automated exposure control, adjustment of mA and/or kV according to patient size.? ? COMPARISON:? None. ? FINDINGS:? Image quality:? Exam is limited given bolus timing and lack of significant opacification of the distal segmental and subsegmental vessels.? ? Pulmonary arteries:? Pulmonary arteries are normal in size.? No central pulmonary embolus. ? Lungs and pleura:? Lungs are clear.? No pleural effusions or pneumothorax.? Central and peripheral airways are patent.? ? Mediastinum:? Heart size is normal, without pericardial effusion.? No evidence of right heart strain.? No mediastinal or hilar adenopathy.? Thoracic aorta is normal in caliber and enhancement.? There is fluid noted within the distal esophagus with mild circumferential wall thickening.? There is a small hiatal hernia. ? Bones and chest wall:? No suspicious bony lesions.? Ribs and thoracic spine appear intact throughout.? Thyroid gland is unremarkable.? No axillary or supraclavicular adenopathy.? Postsurgical changes of both breasts are noted. ? Abdomen:? Visualized upper abdominal solid organs appear normal in the early arterial phase of enhancement.? ? IMPRESSION:? ? Limited evaluation of the distal pulmonary vessels given bolus timing.? No central pulmonary embolus or evidence of right heart strain. ? Small hiatal hernia.? Mild fluid within the distal esophagus with circumferential wall thickening.? Recommend clinical correlation for reflux.? Consider further evaluation with endoscopy. ? ? Dictated by: Luis Fernando Ruvalcaba D.O. on 03/07/2023 at 12:54 ? ? Approved by: Luis Fernando Ruvalcaba D.O. on 03/07/2023 at 13:04?? US - DVT: Radiologist's Impression: Close Vascular Ultrasound (Signed) Luis Fernando Ruvalcaba - 03/07/23 Chest CTA (Signed) Ruvalcaba,Luis Fernando - 03/07/23 Chest X-Ray (Signed) Ruvalcaba,Luis Fernando - 03/07/23 Forearm X-Ray (Signed) Minh Skelton - 12/28/22 Elbow X-Ray (Signed) Minh Skelton - 12/28/22 Chest X-Ray (Signed) ThomasBrent - 04/19/22 Bone Densitometry 12/25/21 Pelvis Ultrasound (Signed) Jeff West - 11/13/21 Echocardiogram Ultrasound (Signed) Roseann Armenta - 10/08/21 Outside DI 08/29/21 Chest X-Ray (Signed) Carroll Reid - 07/16/21 Starr Node Imaging Nuclear Med (Signed) Carroll Reid - 05/15/21 Breast Needle Localization (Signed) Carroll Reid - 05/15/21 Surgical Specimen Imaging (Signed) Carroll Reid - 05/15/21 Mammogram Diagnostic (Signed) Carroll Reid - 05/15/21 Breast Ultrasound (Signed) Kingsley Ness - 04/18/21 Breast MRI (Signed) Robby Ga - 04/15/21 Mammogram Diagnostic (Signed) Carroll Reid - 03/14/21 Breast Biopsy Ultrasound (Signed) Carroll Reid - 03/14/21 Breast Ultrasound (Signed) Gee Guerra - 02/27/21 Mammogram Diagnostic (Signed) Gee Guerra - 02/27/21 Breast Ultrasound (Signed) Gee Guerra - 02/27/21 Mammogram Screening (Signed) Robby Ga - 09/29/20 Mammogram Screening (Signed) Robby Ga - 09/15/19 Launch?[place] [address] Ultrasound Report Signed Patient: Jazmyn Rose MR#: [id number] : 1975 Acct:[id number] Age/Sex: 47 / F Date of Service: 03/07/23 Loc: Accession Number: [id number] ?? Procedure: US periph venous low extrem lt Ordering Provider: Halima Fisher D.O. PROCEDURE:? US PERIPH VENOUS LOW EXTREM LT ? INDICATIONS:? left leg pain, swelling, chest pain, hx breast ca ? TECHNIQUE:? Real-time imaging, as well as color and pulse Doppler interrogation, were performed of the lower extremity deep veins from the inguinal ligament to the popliteal fossa.? ? COMPARISON:? None. ? FINDINGS:? Somewhat limited evaluation given patient's body habitus. ? The common femoral, femoral and popliteal veins are normally compressible, and free of intraluminal thrombus.? Color and pulse Doppler demonstrate normal phasic intraluminal flow.? There is normal augmentation response to distal compression maneuver.? ? IMPRESSION:? ? No evidence of left lower extremity deep venous thrombosis. ? ? Dictated by: Luis Fernando Ruvalcaba D.O. on 03/07/2023 at 13:15 ? ? Approved by: Luis Fernando Ruvalcaba D.O. on 03/07/2023 at 13:16?? ECG Data Attestation: I personally reviewed and interpreted this ECG as follows: Interpretation: Sinus tachycardia with a rate of 101 SD 124 QRS 86 and QTC 438. No acute ST elevation/depression noted. Nonspecific change. No S1 Q 3 T3 appreciated. MDM Narrative Medical decision making narrative: This is a 47-year-old female who presents with complaint of chest pain that has been intermittent over several months 4 episodes that lasted 1-2 minutes and then resolved. Patient's cardiac workup shows sinus tachycardia no acute ST changes prior to person EKGs. Troponin BNP are negative, labs including CBC, CMP which include electrolytes and renal function show potassium at 3.3 glucose of 124 ALT of 42 but negative bilirubin, lipase. Chest x-ray is negative. Patient does have risk factors for pulmonary emboli and after discussion about D-dimer versus going had an imaging decision was made to go ahead and image. Patient has had active breast cancer she is currently on letrozole she has had bilateral mastectomy and chemo, she is had some swelling in her left leg and pain for several months about the same time as the intermittent chest pain. Patient besides tachycardia has not been hypoxic but was over 101 when she arrived. Seated on evaluation she is not tachycardic. PE scan as well as DVT ultrasound of the left leg as patient has had some swelling and noticed discomfort in the left leg. CT angio shows small hiatal hernia some thickening of the esophagus, no obvious. CBC ultrasound is negative. Repeat EKG and troponin was not obtained as it has been 24 hours and patient has not had any persistent chest pain. Discharge Plan Departure Patient Disposition: Home Clinical Impression: Atypical chest pain Instructions: DI for Atypical Chest Pain Activity Restrictions/Additional Instructions: Please follow-up with your physician for recheck. Your imaging does not show any blood clots in your leg or chest, there is some thickening of the esophagus that could be related to your discomfort. I would recommend follow-up for endoscopy or EGD to evaluate this. If you are having frequent episodes you could try some Pepcid 40 mg once daily to see if this improves your symptoms. Please return for new or worsening symptoms, new chest pain, shortness of breath, lightheadedness or passing out, increasing swelling or other new or concerning changes. Prescriptions: No Action amlodipine 5 mg tablet 5 mg PO DAILY cholecalciferol (vitamin D3) 50 mcg (2,000 unit) capsule 50 mcg PO DAILY [employer] 5 billion cell powder in packet 5 cell PO DAILY magnesium 200 mg Tablet 200 mg PO 2XW Calcium Magnesium 500 mg calcium -250 mg Tablet 1 tab PO DAILY letrozole [Femara] 2.5 mg Tablet 2.5 mg PO DAILY Qty: 90 3RF Referrals: Wisam Arellano MD [Primary Care Provider] - Stand Alone Forms: Patient Portal/API
[2023-03-07 11:46] LABS: COVID19 -Nasal RAPID Negative (Negative)
[2023-03-07 11:53] LABS: NT-proBNP (BNP-Adult 18+) 32 pg/mL (<125); Troponin I < 0.012 ng/mL (0.01-0.034)
--- NOTE | 2023-03-07 11:55 | DI.US.S_ITS ---
PROCEDURE: US PERIPH VENOUS LOW EXTREM LT INDICATIONS: left leg pain, swelling, chest pain, hx breast ca TECHNIQUE: Real-time imaging, as well as color and pulse Doppler interrogation, were performed of the lower extremity deep veins from the inguinal ligament to the popliteal fossa. COMPARISON: None. FINDINGS: Somewhat limited evaluation given patient's body habitus. The common femoral, femoral and popliteal veins are normally compressible, and free of intraluminal thrombus. Color and pulse Doppler demonstrate normal phasic intraluminal flow. There is normal augmentation response to distal compression maneuver. IMPRESSION: No evidence of left lower extremity deep venous thrombosis. Dictated by: Luis Fernando Ruvalcaba D.O. on 03/07/2023 at 13:15 Approved by: Luis Fernando Ruvalcaba D.O. on 03/07/2023 at 13:16
--- NOTE | 2023-03-07 11:55 | DI.CT.S_ITS ---
PROCEDURE: CT ANGIO CHEST PE PROTOCOL INDICATIONS: left leg pain, swelling, chest pain, hx breast ca TECHNIQUE: After the administration of intravenous contrast, 2 mm thick sections acquired from the pulmonary apices to the posterior costophrenic angles. 3-dimensional maximum intensity projection (MIP) coronal and sagittal reformats were then acquired through the thorax. For radiation dose reduction, the following was used: automated exposure control, adjustment of mA and/or kV according to patient size. COMPARISON: None. FINDINGS: Image quality: Exam is limited given bolus timing and lack of significant opacification of the distal segmental and subsegmental vessels. Pulmonary arteries: Pulmonary arteries are normal in size. No central pulmonary embolus. Lungs and pleura: Lungs are clear. No pleural effusions or pneumothorax. Central and peripheral airways are patent. Mediastinum: Heart size is normal, without pericardial effusion. No evidence of right heart strain. No mediastinal or hilar adenopathy. Thoracic aorta is normal in caliber and enhancement. There is fluid noted within the distal esophagus with mild circumferential wall thickening. There is a small hiatal hernia. Bones and chest wall: No suspicious bony lesions. Ribs and thoracic spine appear intact throughout. Thyroid gland is unremarkable. No axillary or supraclavicular adenopathy. Postsurgical changes of both breasts are noted. Abdomen: Visualized upper abdominal solid organs appear normal in the early arterial phase of enhancement. IMPRESSION: Limited evaluation of the distal pulmonary vessels given bolus timing. No central pulmonary embolus or evidence of right heart strain. Small hiatal hernia. Mild fluid within the distal esophagus with circumferential wall thickening. Recommend clinical correlation for reflux. Consider further evaluation with endoscopy. Dictated by: Luis Fernando Ruvalcaba D.O. on 03/07/2023 at 12:54 Approved by: Luis Fernando Ruvalcaba D.O. on 03/07/2023 at 13:04
[2023-03-07 12:12] VITALS: BP 177/92; PULSE 102; RESP 18; O2SAT 97
[2023-03-07 14:21] VITALS: BP 146/88; PULSE 90; RESP 18; O2SAT 99
[2023-03-07 15:15] VITALS: BP 151/84; PULSE 86; RESP 16; O2SAT 99
== END 2023-03-07 15:15 | disposition home or self-care (01) ==
PROVIDERS: Emergency Provider Emergency Medicine; PCP Family Medicine
DX: R07.89 Other chest pain (principal); R00.0 Tachycardia, unspecified; K44.9 Diaphragmatic hernia without obstruction or gangrene; Z20.822 Contact with and (suspected) exposure to COVID-19
CPT/HCPCS: 36415; 71045; 71275; 80053; 82550; 83690; 83735; 83880; 84484; 85025; 85610; 85730; 87635; 93005; 93971; 99284; C9803; Q9967

== ENCOUNTER → 2023-05-13 11:39 | Outpatient (CLI) | payer OTHER, SELFPAY ==
--- NOTE | 2023-05-13 | DI.RAD.S_ITS ---
PROCEDURE: XR KNEE LT 4V INDICATIONS: chronic pain of left knee TECHNIQUE: 4 views of the knee were acquired. COMPARISON: None. FINDINGS: Bones: No fractures or dislocations. No suspicious bony lesions. Soft tissues: Moderate joint effusion. No suspicious soft tissue calcifications. IMPRESSION: Moderate knee joint effusion, without acute bony abnormality or significant degenerative change. Dictated by: Kameron Tee M.D. on 05/13/2023 at 13:12 Approved by: Kameorn Tee M.D. on 05/13/2023 at 13:13
== END ==
PROVIDERS: PCP Family Medicine; Referring Provider Family Medicine; Visit Provider Family Medicine
DX: M25.562 Pain in left knee (principal); M25.462 Effusion, left knee
CPT/HCPCS: 73564

== ENCOUNTER 2023-07-03 12:18 | Day surgery (SDC) | payer OTHER, SELFPAY ==
--- NOTE | 2023-07-03 | PATH_ITS ---
[facility] Accession Number: [id number] No. of containers..03 Tissue . 01 Material submitted: . PART A: duodenum - DUODENUM PART B: pylorus - PYLORUS PART C: esophagus, E-G Junction - GE JUNCTION . 01 Diagnosis: A. Duodenum, Biopsy: Duodenal mucosa with no diagnostic abnormality. Negative for active inflammation, features of sprue, dysplasia, or malignancy. . B. Stomach, Pylorus: Acute erosive gastritis. No evidence of Helicobacter on H/E stain. Negative for intestinal metaplasia. Negative for dysplasia and malignancy. . C. Gastroesophageal Junction, Biopsy: Squamocolumnar junctional mucosa with no diagnostic abnormality. Negative for intestinal metaplasia. Negative for dysplasia and malignancy. . [facility] 07/13/2023 1234 Local . 01 Electronically signed: . Jazmyn Acosta MD, Pathologist NPI- [id number] . 01 Gross description: . Part A: DUODENUM: Received in formalin is 1 fragment(s) of meneses, soft tissue measuring 0.2 x 0.2 x 0.2 cm submitted entirely in 1 cassette(s) Part B: PYLORUS: Received in formalin are 3 fragment(s) of meneses, soft tissue measuring 0.1 x 0.1 x 0.1 cm to 0.3 x 0.3 x 0.2 cm submitted entirely in 1 cassette(s) Part C: GE JUNCTION: Received in formalin are 4 fragment(s) of meneses, soft tissue measuring 0.1 x 0.1 x 0.1 cm to 0.4 x 0.3 x 0.2 cm submitted entirely in 1 cassette(s) /LEXII 07/09/2023 0115 Local . 01 Pathologist provided ICD-10: K29.50 . 01 CPT . 043022, 320038, 353642 Specimen Comment: A courtesy copy of this report has been sent to [facility] Pathology Performed at: 01 [facility] [address] [place] [address], [place], [place] [id number] MD Robby Marshall MD Phone: [phone]
[2023-07-03 12:40] VITALS: BP 139/88; PULSE 92; RESP 17; TEMP 36.3; O2SAT 96; BMI 32.9
[2023-07-03] MEDS: LACTATED RINGERS 1,000 ML 42 ML IV (12:52)
--- NOTE | 2023-07-03 14:44 | PM.PREOP ---
Pre-operative Note Interval Note History & Physical reviewed/Exam performed by Physician: Yes Changes to H&P: No H&P completed within 30 days and has changed as indicated here:: Reiterated risks benefits and alternatives today patient understands and would like to proceed.
--- NOTE | 2023-07-03 14:44 | PM.OP.COLON ---
Operative Date/Time/Diagnoses Date of procedure: 07/03/23 Time of procedure: 14:44 Pre-op diagnosis: family history of colon cancer in aunt.
[2023-07-03 16:08] VITALS: BP 94/58; PULSE 93; RESP 22; TEMP 36.1; O2SAT 92
--- NOTE | 2023-07-03 16:11 | PM.OP.EC ---
Operative Date/Time/Diagnoses Date of procedure: 07/03/23 Time of procedure: 16:12 Pre-op diagnosis: Aunt with colon cancer. First colonoscopy Chest pain - presumed reflux and hiatal hernia Post-op diagnosis: same Procedure & Clinicians Study performed: 1. EGD and biopsy for esophageal thickening on CT scan as well as symptoms of GERD and hiatal hernia 2. Colonoscopy and biopsy for screening and family history of colon cancer Indications: esophageal thickening on CT scan as well as symptoms of GERD and hiatal hernia, screening and family history of colon cancer Surgeon: Cinthya Santacruz Procedure Notes Procedure in detail: Patient was taken to the endoscopy suite and placed in a supine position. A time-out was performed. With the help of anesthesiologist conscious sedation was induced and monitored throughout the case. A bite block was placed. The EGD scope was then introduced into the mouth and easily maneuvered into the esophagus without difficulty. It was then advanced into the stomach and there was some irritation around the pyloric region which was observed and photographed. The duodenum was entered and appeared normal a photograph was obtained. A biopsy of the duodenum was obtained. A biopsy of the irritated gastric antrum and pyloric area was obtained. The scope was then retroflexed and a photograph of the hiatal hernia was obtained. The scope was then withdrawn into the esophagus and biopsies of the GE junction were obtained. Photographs as well were obtained of a GE junction that seemed to have circumferential Rey's type changes. The scope was then withdrawn and the patient was repositioned in a left lateral decubitus position for colonoscopy. A digital rectal exam was performed and there were no masses or strictures. The colonoscope was introduced into the anal canal and advanced through to the cecum. A photograph of the appendiceal orifice was obtained. The bowel prep was good Morrill bowel prep score of 2. The scope was then withdrawn for a total of 10 minutes and no polyps were seen. There were a few scattered diverticula within the sigmoid colon. The scope was then retroflexed and a photograph of normal internal hemorrhoidal piles was obtained. 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 Duodenum 2. Pylorus 3. GE junction) Post-procedure Plan for aftercare: With a family history of colon cancer I recommend every 5 year screening. This would put you in the 5 year screening group since you have endorsed a family history of colon cancer even though you have no polyps. Because I do see diverticula I know that you will benefit from a fiber supplement. This can prevent any problems that could occur because of diverticula although many people with diverticula do not have any problems. Your EGD also showed some signs of inflammation around the pylorus and at the GE junction we will see the biopsy results and make a recommendation based on that but I would follow-up with your primary care physician in the next couple of weeks to discuss a plan of care for GERD/reflux/stomach ulcer. Generally a hiatal hernia does not require any surgical intervention and treatment with antacid medication is usually sufficient. If you biopsies show a significant amount of Rey's esophagus you may need to be referred to a string top sealer for screening regimen.
[2023-07-03 16:13] VITALS: BP 107/68; PULSE 90; RESP 20; O2SAT 97
[2023-07-03 16:18] VITALS: BP 111/71; PULSE 98; RESP 20; O2SAT 97
[2023-07-03 16:30] VITALS: BP 107/65; PULSE 96; RESP 20; TEMP 37.2; O2SAT 97
== END 2023-07-03 16:38 | disposition home or self-care (01) ==
PROVIDERS: PCP Family Medicine; Referring Provider Surgery; Visit Provider Surgery
PROC: 0DJ08ZZ Inspection of Upper Intestinal Tract, Via Natural or Artificial Opening Endoscopic (ICD-10-PCS; CPT 43235; principal; 2023-07-03 13:45)
PROC: 0DJD8ZZ Inspection of Lower Intestinal Tract, Via Natural or Artificial Opening Endoscopic (ICD-10-PCS; CPT 45378; 2023-07-03 13:45)
DX: Z12.11 Encounter for screening for malignant neoplasm of colon (principal); R93.3 Abnormal findings on diagnostic imaging of other parts of digestive tract; R07.89 Other chest pain; K21.9 Gastro-esophageal reflux disease without esophagitis; K44.9 Diaphragmatic hernia without obstruction or gangrene; K57.30 Diverticulosis of large intestine without perforation or abscess without bleeding; K29.60 Other gastritis without bleeding
CPT/HCPCS: 45378; 43239; J2704

== ENCOUNTER → 2024-11-08 15:22 | Outpatient (CLI) | payer OTHER, SELFPAY ==
--- NOTE | 2024-11-08 15:23 | DI.RAD.S_ITS ---
PROCEDURE: XR FOOT RT 2V INDICATIONS: Pain in right foot TECHNIQUE: 2 views of the foot were acquired. COMPARISON: None. FINDINGS: Bones: No fractures or dislocations. No suspicious bony lesions. There is mild calcaneal spurring. Soft tissues: No tibiotalar joint effusion. Achilles tendon appears normal. IMPRESSION: No acute bony abnormality. If pain persists, followup imaging in 5-7 days is recommended to exclude occult fracture. Dictated by: Amanda Whitfield M.D. on 11/08/2024 at 16:44 Approved by: Amanda Whitfield M.D. on 11/08/2024 at 16:45
== END ==
PROVIDERS: PCP Family Medicine; Referring Provider Family Medicine; Visit Provider Family Medicine
DX: M79.671 Pain in right foot (principal)
CPT/HCPCS: 73620

== ENCOUNTER → 2025-04-11 07:42 | Outpatient (CLI) | payer OTHER, SELFPAY ==
[2025-04-11 08:46] LABS: Alanine Aminotransferase 43 IU/L (<35); Albumin 4.6 g/dL (3.5-5.0); Albumin Globulin Ratio 1.5 (1.0-2.8); Alkaline Phosphatase 116 U/L (38-126); Aspartate Aminotransferase 44 IU/L (14-36); Bilirubin Total 0.5 mg/dL (0.2-1.3); Bilirubin Unconjugated 0.1 mg/dL (0.0-1.1); Cholesterol 176 mg/dL (140-199); HDL Cholesterol 53 mg/dL (40-60); HEMOLYSIS 22 (0-50); LDL Cholesterol Calculated 108 mg/dL (<100); Total Protein 7.6 g/dL (6.3-8.2); Triglycerides 73 mg/dL (35-150)
[2025-04-11 09:18] LABS: TSH w/ Reflex to FT4 1.52 uIU/mL (0.47-4.68)
== END ==
PROVIDERS: PCP Family Medicine; Referring Provider Family Medicine; Visit Provider Family Medicine
DX: Z00.00 Encounter for general adult medical examination without abnormal findings (principal); Z13.29 Encounter for screening for other suspected endocrine disorder
CPT/HCPCS: 80061; 80076; 84443

== ENCOUNTER → 2025-11-11 07:44 | Outpatient (CLI) | payer OTHER, SELFPAY ==
[2025-11-11 10:33] LABS: Alanine Aminotransferase 53 IU/L (<35); Albumin 4.3 g/dL (3.5-5.0); Albumin Globulin Ratio 1.5 (1.0-2.8); Alkaline Phosphatase 92 U/L (38-126); Blood Urea Nitrogen 9 mg/dL (7-17); Calcium 9.0 mg/dL (8.4-10.2); Carbon Dioxide 28 mmol/L (22-32); Chloride 104 mmol/L (98-107); Cholesterol 163 mg/dL (140-199); Estimated Glomerular Filt Rate > 60 mL/min (>60); Globulin 2.9 g/dL (1.7-4.1); Glucose 98 mg/dL (70-99); HDL Cholesterol 65 mg/dL (40-60); HEMOLYSIS < 15 (0-50); Potassium 3.9 mmol/L (3.4-5.1); Sodium 139 mmol/L (137-145); Total Protein 7.2 g/dL (6.3-8.2); Triglycerides 99 mg/dL (35-150)
[2025-11-11 10:58] LABS: TSH w/ Reflex to FT4 1.95 uIU/mL (0.47-4.68)
[2025-11-11 12:57] LABS: Add Manual Diff / Slide Review NO; Hematocrit 41.1 % (36-46); Hemoglobin 13.8 g/dL (12.0-16.0); Lymphocytes Absolute Auto 1400 /uL (1100-4500); Mean Corpuscular HGB Conc 33.6 % (30-36); Mean Corpuscular Hemoglobin 28.2 PG (26-34); Mean Corpuscular Volume 83.8 fL (80-100); Platelet Count 270 X10^3/uL (150-400)
== END ==
PROVIDERS: PCP Family Medicine; Referring Provider Family Medicine; Visit Provider Family Medicine
DX: Z00.00 Encounter for general adult medical examination without abnormal findings (principal)
CPT/HCPCS: 36415; 80053; 80061; 84443; 85025